=== PATIENT | female | born 1990 | race African-American/Black ===

== ENCOUNTER 2016-09-03 16:00 | Emergency (ER) | payer SELFPAY ==
[2016-09-03 16:22] VITALS: BP 144/91
--- NOTE | 2016-09-03 16:39 | EDM.PDOC ---
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 She is taking [id number] vitamin. Review of Systems: As per history of present illness and below otherwise all systems reviewed and negative. Past medical history: As per history of present illness and as reviewed below otherwise noncontributory. Surgical history: As per history of present illness and as reviewed below otherwise noncontributory. Social history: No reported history of drug or alcohol abuse. Family history: As per history of present illness and as reviewed below otherwise noncontributory. Physical exam: Alert and oriented female very polite. Answering questions appropriately HEENT: Atraumatic, normocehpalic, pupils reactive, negative for conjunctival pallor or scleral icterus, mucous membranes moist, throat clear, neck supple, nontender, trachea midline. Lungs: Clear to auscultation, breath sounds equal bilaterally, chest non tender. Heart: S1S2, regular, negative for clicks, rubs, or JVD. Abdomen: Soft, nondistended, nontender. Negative for masses or hepatossplenmegaly. Negative for costovertebral tenderness. Pelvis: Stable nontender. Genitourinary: Deferred. Rectal: Deferred Extremities: Atraumatic, negative for cords or calf pain. Neurovascular unremarkable. Neuro: Awake, alert, oriented. Cranial nerves II through XII unremarkable. Cerebellum unremarkable. Motor and sensory unremarkable throughout. Exam nonfocal. Discussed case with Dr. Ortiz who has accepted the patient to see him in the clinic tomorrow at 1245 Diagnostics: [Transvaginal ultrasound UA HCG quant] Therapeutics: [] Impression: [Abdominal pain Renal Calculus right mid ureter] Plan: [] See Dr. Ortiz tomorrow at 1245 Definitive disposition and diagnosis as appropriate pending reevaluation and review of above. Onset: Sudden Duration: Day(s): (4 days of cramping) Location: Reports: Abdomen Quality: Reports: Ache, Same as Previous Episode Severity: Moderate Improves with: Reports: None Worsens with: Reports: None Pelvic Pain Score (Numeric/FACES): 3 - Related Data Allergies Allergy/AdvReac Type Severity Reaction Status Date / Time ibuprofen Allergy Abdominal Verified 09/03/16 16:22 Pain Home Meds: Home Meds . [No Known Home Meds] 09/03/16 [History] Past Medical History HEENT History: Reports: None Cardiovascular History: Reports: None Respiratory History: Reports: None Gastrointestinal History: Reports: None Genitourinary History: Reports: None INCOME TAX AUDITOR History: Reports: None Musculoskeletal History: Reports: None Neurological History: Reports: None Psychiatric History: Reports: None Endocrine/Metabolic History: Reports: None Hematologic History: Reports: None Immunologic History: Reports: None Oncologic (Cancer) History: Reports: None Dermatologic History: Reports: None - Infectious Disease History Infectious Disease History: Reports: None - Past Surgical History Head Surgeries/Procedures: Reports: None HEENT Surgical History: Reports: None Cardiovascular Surgical History: Reports: None Respiratory Surgical History: Reports: None GI Surgical History: Reports: None Female Surgical History: Reports: None Musculoskeletal Surgical History: Reports: None Dermatological Surgical History: Reports: None Social & Family History - Family History Family Medical History: Noncontributory - Tobacco Use Smoking Status *Q: Never Smoker Second Hand Smoke Exposure: No - Caffeine Use Caffeine Use: Reports: None - Recreational Drug Use Recreational Drug Use: No ED ROS GENERAL - Review of Systems Review Of Systems: ROS reveals no pertinent complaints other than HPI. ED EXAM - Physical Exam Exam: See Below (see dictation) Course - Vital Signs Last Recorded V/S: Last Vital Signs Temp 36.6 C 09/03/16 16:18 Pulse 78 09/03/16 16:18 Resp 16 09/03/16 16:18 BP 144/91 H 09/03/16 16:18 Pulse Ox 98 09/03/16 16:18 - Orders/Labs/Meds Orders: Active Orders 24 hr Category Date Time Status Abdomen Pelvis wo Cont [CT] Stat Exams 09/03/16 18:02 Taken OB Transvaginal [US] Stat Exams 09/03/16 16:33 Taken Sodium Chloride 0.9% [Saline Flush] Med 09/03/16 18:02 Active 10 ml FLUSH ASDIRECTED PRN Sodium Chloride 0.9% [Saline Flush] Med 09/03/16 18:02 Active 2.5 ml FLUSH ASDIRECTED PRN Saline Lock Insert [OM.PC] Stat Oth 09/03/16 18:02 Ordered Medication Orders Sodium Chloride (Saline Flush) 10 ml FLUSH ASDIRECTED PRN PRN Reason: Keep Vein Open Sodium Chloride (Saline Flush) 2.5 ml FLUSH ASDIRECTED PRN PRN Reason: Keep Vein Open Labs: Laboratory Tests 09/03/16 09/03/16 09/03/16 Range/Units 16:26 16:45 16:45 WBC 17.51 H (4.0-11.0) K/uL RBC 5.19 (4.30-5.90) M/uL Hgb 13.3 (12.0-16.0) g/dL Hct 38.9 (36.0-46.0) % MCV 75.0 L (80.0-98.0) fL MCH 25.6 L (27.0-32.0) pg MCHC 34.2 (31.0-37.0) g/dL RDW Std Deviation 46.2 (28.0-62.0) fl RDW Coeff of Rudy 17 H (11.0-15.0) % Plt Count 255 (150-400) K/uL MPV 10.30 (7.40-12.00) fL Neut % (Auto) 64.1 (48.0-80.0) % Lymph % (Auto) 27.5 (16.0-40.0) % Montrose % (Auto) 7.3 (0.0-15.0) % Eos % (Auto) 0.9 (0.0-7.0) % Baso % (Auto) 0.2 (0.0-1.5) % Neut # (Auto) 11.2 H (1.4-5.7) K/uL Lymph # (Auto) 4.8 H (0.6-2.4) K/uL Montrose # (Auto) 1.3 H (0.0-0.8) K/uL Eos # (Auto) 0.2 (0.0-0.7) K/uL Baso # (Auto) 0.0 (0.0-0.1) K/uL Nucleated RBC % 0.0 /100WBC Nucleated RBCs # 0 K/uL Sodium (136-146) mmol/L Potassium (3.5-5.1) mmol/L Chloride (98-110) mmol/L Carbon Dioxide (21-31) mmol/L BUN (6.0-23.0) mg/dL Creatinine (0.6-1.5) mg/dL Est Cr Clr Drug Dosing mL/min Estimated GFR (MDRD) ml/min Glucose (60-110) mg/dL Calcium (8.8-10.8) mg/dL Total Bilirubin (0.1-1.5) mg/dL AST (5-40) IU/L ALT (8-54) IU/L Alkaline Phosphatase (40-150) Total Protein (6.0-8.0) g/dL Albumin (3.5-5.0) g/dL Globulin (2.0-3.5) g/dL Albumin/Globulin Ratio (1.3-2.8) HCG, Quant < 1.2 mIU/mL Urine Color YELLOW Urine Appearance CLEAR Urine pH 6.0 (5.0-8.0) Ur Specific Fenton 1.015 (1.001-1.035) Urine Protein NEGATIVE (NEGATIVE) mg/dL Urine Glucose (UA) NEGATIVE (NEGATIVE) mg/dL Urine Ketones NEGATIVE (NEGATIVE) mg/dL Urine Occult Blood MODERATE (NEGATIVE) Urine Nitrite NEGATIVE (NEGATIVE) Urine Bilirubin NEGATIVE (NEGATIVE) Urine Urobilinogen 0.2 (<2.0) EU/dL Ur Leukocyte Esterase SMALL (NEGATIVE) Urine RBC 2-4 (0-2/HPF) Urine WBC 2-6 (0-5/HPF) Ur Epithelial Cells FEW (NONE-FEW) Urine Bacteria FEW (NEGATIVE) 09/03/16 Range/Units 16:45 WBC (4.0-11.0) K/uL RBC (4.30-5.90) M/uL Hgb (12.0-16.0) g/dL Hct (36.0-46.0) % MCV (80.0-98.0) fL MCH (27.0-32.0) pg MCHC (31.0-37.0) g/dL RDW Std Deviation (28.0-62.0) fl RDW Coeff of Rudy (11.0-15.0) % Plt Count (150-400) K/uL MPV (7.40-12.00) fL Neut % (Auto) (48.0-80.0) % Lymph % (Auto) (16.0-40.0) % Montrose % (Auto) (0.0-15.0) % Eos % (Auto) (0.0-7.0) % Baso % (Auto) (0.0-1.5) % Neut # (Auto) (1.4-5.7) K/uL Lymph # (Auto) (0.6-2.4) K/uL Montrose # (Auto) (0.0-0.8) K/uL Eos # (Auto) (0.0-0.7) K/uL Baso # (Auto) (0.0-0.1) K/uL Nucleated RBC % /100WBC Nucleated RBCs # K/uL Sodium 139 (136-146) mmol/L Potassium 3.4 L (3.5-5.1) mmol/L Chloride 109 (98-110) mmol/L Carbon Dioxide 21 (21-31) mmol/L BUN 10 (6.0-23.0) mg/dL Creatinine 1.0 (0.6-1.5) mg/dL Est Cr Clr Drug Dosing 86.75 mL/min Estimated GFR (MDRD) > 60.0 ml/min Glucose 100 (60-110) mg/dL Calcium 9.3 (8.8-10.8) mg/dL Total Bilirubin 0.5 (0.1-1.5) mg/dL AST 12 (5-40) IU/L ALT 11 (8-54) IU/L Alkaline Phosphatase 58 (40-150) Total Protein 7.7 (6.0-8.0) g/dL Albumin 4.5 (3.5-5.0) g/dL Globulin 3.2 (2.0-3.5) g/dL Albumin/Globulin Ratio 1.4 (1.3-2.8) HCG, Quant mIU/mL Urine Color Urine Appearance Urine pH (5.0-8.0) Ur Specific Fenton (1.001-1.035) Urine Protein (NEGATIVE) mg/dL Urine Glucose (UA) (NEGATIVE) mg/dL Urine Ketones (NEGATIVE) mg/dL Urine Occult Blood (NEGATIVE) Urine Nitrite (NEGATIVE) Urine Bilirubin (NEGATIVE) Urine Urobilinogen (<2.0) EU/dL Ur Leukocyte Esterase (NEGATIVE) Urine RBC (0-2/HPF) Urine WBC (0-5/HPF) Ur Epithelial Cells (NONE-FEW) Urine Bacteria (NEGATIVE) Meds: Medications Generic Name Dose Route Start Last Admin Trade Name Freq PRN Reason Stop Dose Admin Sodium Chloride 10 ml 09/03/16 18:02 Saline Flush FLUSH ASDIRECTED PRN Keep Vein Open Sodium Chloride 2.5 ml 09/03/16 18:02 Saline Flush FLUSH ASDIRECTED PRN Keep Vein Open Departure - Departure Time of Disposition: 19:01 Disposition: Home, Self-Care 01 Condition: good Clinical Impression: Renal calculus, right - Discharge Information Forms: ED Department Discharge Additional Instructions: The following information is given to patients seen in the emergency department who are being discharged to home. This information is to outline your options for follow-up care. We provide all patients seen in our emergency department with a follow-up referral. The need for follow-up, as well as the timing and circumstances, are variable depending upon the specifics of your emergency department visit. If you don't have a primary care physician on staff, we will provide you with a referral. We always advise you to contact your personal physician following an emergency department visit to inform them of the circumstance of the visit and for follow-up with them and/or the need for any referrals to a consulting specialist. The emergency department will also refer you to a specialist when appropriate. This referral assures that you have the opportunity for followup care with a specialist. All of these measure are taken in an effort to provide you with optimal care, which includes your followup. Under all circumstances we always encourage you to contact your private physician who remains a resource for coordinating your care. When calling for followup care, please make the office aware that this follow-up is from your recent emergency room visit. If for any reason you are refused follow-up, please contact the [facility] emergency department at and asked to speak to the emergency department charge nurse. Please see Dr. Ortiz at [phone] [facility] Specialty Care - Urology [address] [place] [id number] - My Orders Last 24 Hours: My Active Orders 09/03/16 16:33 OB Transvaginal [US] Stat 09/03/16 18:02 Abdomen Pelvis wo Cont [CT] Stat Sodium Chloride 0.9% [Saline Flush] 10 ml FLUSH ASDIRECTED PRN Sodium Chloride 0.9% [Saline Flush] 2.5 ml FLUSH ASDIRECTED PRN Saline Lock Insert [OM.PC] Stat - Assessment/Plan Last 24 Hours: My Active Orders 09/03/16 16:33 OB Transvaginal [US] Stat 09/03/16 18:02 Abdomen Pelvis wo Cont [CT] Stat Sodium Chloride 0.9% [Saline Flush] 10 ml FLUSH ASDIRECTED PRN Sodium Chloride 0.9% [Saline Flush] 2.5 ml FLUSH ASDIRECTED PRN Saline Lock Insert [OM.PC] Stat
[2016-09-03] MEDS ORDERED: Sodium Chloride 0.9% 10 ML Syringe FLUSH PRN (18:02)
[2016-09-03] MEDS ORDERED: Sodium Chloride 0.9% 2.5 ML Syringe FLUSH PRN (18:02)
[2016-09-03 18:17] LABS: CHLORIDE,CL 109 mmol/L (98-110); SODIUM,NA 139 mmol/L (136-146)
--- NOTE | 2016-09-04 10:44 | US ---
EXAM DATE: 09/03/16 PATIENT'S AGE: 26 Patient: KAREN JOHNSON Facility: [place], [place] Site . Site : 1990 Study: US OB Pelvis [id number]/7/2017 5:54:31 PM Ordering Physician: Doctor Saeed Final Report: HISTORY: Spotting, positive home test. FINDINGS: Multiple box scale static images from transabdominal pelvic and renal ultrasound with transvaginal pelvic images were evaluated. The uterus measures 7.2 x 4.1 x 3.3 cm. The endometrial stripe is 8 mm in thickness. No intrauterine gestational sac is seen. Nabothian cysts are present. A mild to moderate amount of free fluid is seen in the cul de sac. The right ovary measures right ovary measures 3.1 x 2.2 x 2.6 cm. There is normal blood flow to the right ovary. No adnexal mass. The left ovary measures 3.1 x 2.0 x 2.4 cm and contains follicles has normal blood flow. No adnexal mass is appreciated. The maternal right kidney measures 11.6 cm and has moderate hydronephrosis. The left kidney measures 12.1 cm and is free of hydronephrosis or mass. IMPRESSION: 1. No intra uterine gestational sac is identified. No adnexal mass for ectopic is seen. Recommend correlation with quantitative beta HCG. 2. Mild to moderate amount of free fluid within the cul-de-sac. 3. Moderate maternal right-sided hydronephrosis. Dictated by Christine Heredia MD @ 09/03/2016 6:20:53 PM Dictated by: Christine Heredia MD @ 09/03/2016 18:21:09 (Electronic Signature) Report Signed by Proxy. FRANCOIS
--- NOTE | 2016-09-04 10:48 | CT ---
EXAM DATE: 09/03/16 PATIENT'S AGE: 26 Patient: KAREN JOHNSON Facility: [place], [place] Site . Site : 1990 Study: CT Abdomen/Pelvis [id number] 6:37:49 PM Ordering Physician: Doctor Saeed Final Report: INDICATION: abd pain TECHNIQUE: CT abdomen and pelvis without contrast. COMPARISON: None FINDINGS: Lower chest: Unremarkable. Liver: Unremarkable. Spleen: Unremarkable. Pancreas: Unremarkable. Gallbladder and bile ducts: Unremarkable. Kidneys: 7 x 8 mm calculus within the mid right ureter with associated right- sided hydroureter/ hydronephrosis. Additional bilateral nonobstructing intrarenal calculi. . Adrenal glands: Unremarkable. GI tract: Unremarkable. Appendix is normal. Vascular structures: Unremarkable. Lymph nodes: Unremarkable. Miscellaneous: Unremarkable. No free air. Trace amount of free fluid in the pelvic cul-de-sac. . Pelvic Organs: Unremarkable. Bones: Unremarkable for age. IMPRESSION: 7 x 8 mm calculus within the mid right ureter with associated right-sided hydroureter/ hydronephrosis. Additional bilateral nonobstructing intrarenal calculi.. Dictated by Palmer Tarango MD @ 09/03/2016 6:52:26 PM Dictated by: Palmer Tarango MD @ 09/03/2016 18:52:44 (Electronic Signature) Report Signed by Proxy. [facility]
== END 2016-09-03 19:15 | disposition home or self-care (01) ==
LOC: MW.ED 16:00
DX: O26.831 Pregnancy related renal disease, first trimester (principal); N13.2 Hydronephrosis with renal and ureteral calculous obstruction; Z88.6 Allergy status to analgesic agent; Z3A.11 11 weeks gestation of pregnancy
CPT/HCPCS: 36415; 74176; 74176-26; 76817; 76817-26; 80053; 81001; 84702; 85025; 99284; 99284-25

== ENCOUNTER 2017-03-31 00:05 | Emergency (ER) | payer MEDICAID ==
--- NOTE | 2017-03-31 00:18 | EDM.PDOC ---
ED HPI GENERAL MEDICAL PROBLEM - General Chief Complaint: Behavioral/Psych Stated Complaint: AMBULANCE Time Seen by Provider: 03/31/17 00:13 - History of Present Illness INITIAL COMMENTS - FREE TEXT/NARRATIVE: HISTORY AND PHYSICAL: History of present illness: Patient 27-year-old female history of depression who is currently medicated with trazodone who presents after a friend called police for patient expressing suicidal ideation paramedics were notified palpation awake alert oriented 3 expressing depression with suicidal ideation patient denies ingestion or any self-harm at this time she has no specific plan. Review of systems: As per history of present illness and below otherwise all systems reviewed and negative. Past medical history: As per history of present illness and as reviewed below otherwise noncontributory. Surgical history: As per history of present illness and as reviewed below otherwise noncontributory. Social history: No reported history of drug or alcohol abuse. Family history: As per history of present illness and as reviewed below otherwise noncontributory. Physical exam: HEENT: Atraumatic, normocephalic, pupils reactive, negative for conjunctival pallor or scleral icterus, mucous membranes moist, throat clear, neck supple, nontender, trachea midline. Lungs: Clear to auscultation, breath sounds equal bilaterally, chest nontender. Heart: S1S2, regular, negative for clicks, rubs, or JVD. Abdomen: Soft, nondistended, nontender. Negative for masses or hepatosplenomegaly. Negative for costovertebral tenderness. Pelvis: Stable nontender. Genitourinary: Deferred. Rectal: Deferred. Extremities: Atraumatic, negative for cords or calf pain. Neurovascular unremarkable. Neuro: Awake, alert, oriented. Cranial nerves II through XII unremarkable. Cerebellum unremarkable. Motor and sensory unremarkable throughout. Exam nonfocal. Diagnostics: CBC CMP EKG prolactin UA hCG urine drug screen EtOH aspirin and Tylenol level Therapeutics: IV O2 monitor Impression: #1 depressive episode with suicidal ideation Definitive disposition and diagnosis as appropriate pending reevaluation and review of above. - Related Data Allergies Allergy/AdvReac Type Severity Reaction Status Date / Time ibuprofen Allergy Abdominal Verified 03/31/17 00:08 Pain Home Meds: Home Meds . 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: None Musculoskeletal History: Reports: None Neurological History: Reports: None Psychiatric History: Reports: None Endocrine/Metabolic History: Reports: None Hematologic History: Reports: None Immunologic History: Reports: None Oncologic (Cancer) History: Reports: None Dermatologic History: Reports: None - Infectious Disease History Infectious Disease History: Reports: None - Past Surgical History Head Surgeries/Procedures: Reports: None HEENT Surgical History: Reports: None Cardiovascular Surgical History: Reports: None Respiratory Surgical History: Reports: None GI Surgical History: Reports: None Female Surgical History: Reports: None Musculoskeletal Surgical History: Reports: None Dermatological Surgical History: Reports: None Social & Family History - Family History Family Medical History: Noncontributory - Tobacco Use Smoking Status *Q: Never Smoker Second Hand Smoke Exposure: No - Caffeine Use Caffeine Use: Reports: None - Recreational Drug Use Recreational Drug Use: No ED ROS GENERAL - Review of Systems Review Of Systems: ROS reveals no pertinent complaints other than HPI. ED EXAM, GENERAL - Physical Exam Exam: See Below (See dictation) Departure - Departure Time of Disposition: 00:17 Disposition: DC/Tfer to Psych Hosp/Unit 65 Condition: Good Clinical Impression: Depressive disorder - Discharge Information
[2017-03-31 00:54] LABS: ACETAMINOPHEN < 3.0 ug/mL; CHLORIDE,CL 112 mmol/L (98-110); SODIUM,NA 141 mmol/L (136-146)
[2017-03-31] MEDS ORDERED: cefTRIAXone 1,000 MG in Lidocaine 1% 4 ML IM ONE (01:27)
[2017-03-31] MEDS ORDERED: Ziprasidone Mesylate 20 MG in Water For Injection, Sterile 1.2 ML IM ONE ×2 (02:53→02:58)
[2017-03-31] MEDS ORDERED: Ziprasidone Mesylate 20 MG Vial IM ONE (03:00)
[2017-03-31] MEDS ORDERED: Ziprasidone Mesylate 20 MG Vial ONE (03:01)
[2017-03-31] MEDS ORDERED: Water For Injection, Sterile 20 ML ONE (03:02)
[2017-03-31 03:48] VITALS: BP 140/100
--- NOTE | 2017-03-31 20:59 | CR ---
EXAM DATE: 03/31/17 PATIENT'S AGE: 27 Patient: KAREN JOHNSON Facility: [place], [place] Site . Site : 1990 Study: XRay Chest [id number] 1:51:00 AM Ordering Physician: Satnam Prabhakar Final Report: INDICATION: Pain, Shortness of Breath TECHNIQUE: Chest 1 view COMPARISON: None FINDINGS: Cardiovascular and mediastinum: Heart size and vasculature are normal in caliber and appearance. Mediastinum is within normal limits. Lungs and pleural space: No focal consolidation. No sign of pleural effusion. No pneumothorax. Bones and soft tissues: No significant findings. IMPRESSION: No acute cardiopulmonary disease. Dictated by Palmer Tarango MD @ 03/31/2017 1:52:06 AM Dictated by: Palmer Tarango MD @ 03/31/2017 01:52:17 (Electronic Signature) Report Signed by Proxy. [facility]
== END 2017-03-31 03:26 ==
LOC: MW.ED 00:05
DX: F32.9 Major depressive disorder, single episode, unspecified (principal); R45.851 Suicidal ideations; Z88.6 Allergy status to analgesic agent
CPT/HCPCS: 36415; 71045; 80053; 80305; 81001; 83605; 84146; 84703; 85025; 93005; 96372; 99285; G0480; J0696; J3486; 99284

== ENCOUNTER 2017-11-16 16:48 | Emergency (ER) | payer MEDICAID ==
--- NOTE | 2017-11-16 17:16 | EDM.PDOC ---
ED HPI GENERAL MEDICAL PROBLEM - General Chief Complaint: Abdominal Pain Stated Complaint: PELVIC PAIN Time Seen by Provider: 11/16/17 17:07 Source of Information: Reports: Patient History Limitations: Reports: No Limitations - History of Present Illness INITIAL COMMENTS - FREE TEXT/NARRATIVE: HISTORY AND PHYSICAL: History of present illness: Patient is a 27-year-old female who presents to the emergency room today with complaints of low abdominal cramping in . Denies any vaginal bleeding or discharge. Denies any fever, chills, chest pain, shortness of breath or cough. Denies any nausea, vomiting, diarrhea, constipation or dysuria. She states she is approximately 6 weeks with LMP October 04, 2017. Primary OBGYN is Dr Lee at [facility] Review of systems: As per history of present illness and below otherwise all systems reviewed and negative. Past medical history: As per history of present illness and as reviewed below otherwise noncontributory. Surgical history: As per history of present illness and as reviewed below otherwise noncontributory. Social history: No reported history of drug or alcohol abuse. Family history: As per history of present illness and as reviewed below otherwise noncontributory. Physical exam: General: Developed and well-nourished 27-year-old -[place] female. Alert and oriented. Nontoxic appearing and in no acute distress. HEENT: Atraumatic, normocephalic, pupils equal and reactive bilaterally, negative for conjunctival pallor or scleral icterus, mucous membranes moist, throat clear, neck supple, nontender, trachea midline. No drooling or trismus noted. No meningeal signs Lungs: Clear to auscultation, breath sounds equal bilaterally, chest nontender. Heart: S1S2, regular rate and rhythm without overt murmur Abdomen: Soft, nondistended, nontender. Negative for masses or hepatosplenomegaly. Negative for costovertebral tenderness. Pelvis: Stable nontender. Genitourinary: Deferred. Rectal: Deferred. Skin: Intact, warm, dry. No lesions or rashes noted. Extremities: Atraumatic, negative for cords or calf pain. Neurovascular unremarkable. Neuro: Awake, alert, oriented. Cranial nerves II through XII unremarkable. Cerebellum unremarkable. Motor and sensory unremarkable throughout. Exam nonfocal. Notes: Lab work is unremarkable. Quant 8,370. Patient does have an early UTI, culture added. CT shows an intrauterine uterine gestational sac at 5 weeks 6 days, containing a yolk sac, however pole was not identified. There is a subchorionic hemorrhage noted. This information was shared with the patient. She reports that she does not like taking oral medications and would rather wait on an antibiotic until she sees her SENIOR INFORMATION SECURITY ENGINEER. I strongly encouraged her to follow up with her SENIOR INFORMATION SECURITY ENGINEER tomorrow for further evaluation and management. She voices understanding and is agreeable to plan of care. Denies any further questions or concerns at this time. Diagnostics: CBC, CMP, UA, Quant HCG, OB ultrasound Therapeutics: Tylenol Prescription: None Impression: Pelvic Pain in Plan: 1. Pelvic rest until cleared by your OBGYN (no sex, tampons, etc...) 2. Tylenol as needed for pain. May apply gentle heat to low abdomen. 3. Follow up with your OBGYN in the next 1-2 days. Return to the ED as needed as discussed. Definitive disposition and diagnosis as appropriate pending reevaluation and review of above. Onset: Today Location: Reports: Abdomen pelvic Pain Score (Numeric/FACES): 6 - Related Data Allergies Allergy/AdvReac Type Severity Reaction Status Date / Time ibuprofen Allergy Abdominal Verified 11/16/17 17:01 Pain Home Meds: Home Meds . [No Known Home Meds] 11/16/17 [History] Past Medical History HEENT History: Reports: None Cardiovascular History: Reports: None Respiratory History: Reports: None Gastrointestinal History: Reports: None Genitourinary History: Reports: None SENIOR INFORMATION SECURITY ENGINEER History: Reports: None Musculoskeletal History: Reports: None Neurological History: Reports: None Psychiatric History: Reports: None Endocrine/Metabolic History: Reports: None Hematologic History: Reports: None Immunologic History: Reports: None Oncologic (Cancer) History: Reports: None Dermatologic History: Reports: None - Infectious Disease History Infectious Disease History: Reports: None - Past Surgical History Head Surgeries/Procedures: Reports: None HEENT Surgical History: Reports: None Cardiovascular Surgical History: Reports: None Respiratory Surgical History: Reports: None GI Surgical History: Reports: None Female Surgical History: Reports: None Musculoskeletal Surgical History: Reports: None Dermatological Surgical History: Reports: None Social & Family History - Family History Family Medical History: Noncontributory Oncologic: Reports: Brain, Other (See Below) Other Oncologic Family History: stomach - Tobacco Use Smoking Status *Q: Current Every Day Smoker Years of Tobacco use: 5 Packs/Tins Daily: 0.2 - Caffeine Use Caffeine Use: Reports: None - Recreational Drug Use Recreational Drug Use: Yes Drug Use in Last 12 Months: Yes Recreational Drug Type: Reports: Marijuana/Hashish Recreational Drug Use Frequency: Socially ED ROS GENERAL - Review of Systems Review Of Systems: ROS reveals no pertinent complaints other than HPI. ED EXAM - Physical Exam Exam: See Below (See dictation) Course - Vital Signs Last Recorded V/S: Last Vital Signs Temp 98.2 F 11/16/17 16:59 Pulse 87 11/16/17 16:59 Resp 16 11/16/17 16:59 BP 122/59 L 11/16/17 16:59 Pulse Ox 100 11/16/17 16:59 - Orders/Labs/Meds Orders: Active Orders 24 hr Category Date Time Status OB 1st Tri Sgl 1st Gest [US] Stat Exams 11/16/17 17:08 Taken CULTURE URINE [RM] Stat Lab 11/16/17 18:56 Ordered UA W/MICROSCOPIC [URIN] Stat Lab 11/16/17 17:06 Ordered Labs: Laboratory Tests 11/16/17 11/16/17 11/16/17 Range/Units 17:06 17:48 17:48 WBC 15.96 H (4.0-11.0) K/uL RBC 4.73 (4.30-5.90) M/uL Hgb 12.3 (12.0-16.0) g/dL Hct 35.3 L (36.0-46.0) % MCV 74.6 L (80.0-98.0) fL MCH 26.0 L (27.0-32.0) pg MCHC 34.8 (31.0-37.0) g/dL RDW Std Deviation 46.8 (28.0-62.0) fl RDW Coeff of Rudy 17 H (11.0-15.0) % Plt Count 291 (150-400) K/uL MPV 9.20 (7.40-12.00) fL Neut % (Auto) 69.1 (48.0-80.0) % Lymph % (Auto) 17.1 (16.0-40.0) % [place] % (Auto) 11.7 (0.0-15.0) % Eos % (Auto) 1.8 (0.0-7.0) % Baso % (Auto) 0.3 (0.0-1.5) % Neut # (Auto) 11.0 H (1.4-5.7) K/uL Lymph # (Auto) 2.7 H (0.6-2.4) K/uL [place] # (Auto) 1.9 H (0.0-0.8) K/uL Eos # (Auto) 0.3 (0.0-0.7) K/uL Baso # (Auto) 0.1 (0.0-0.1) K/uL Nucleated RBC % 0.0 /100WBC Nucleated RBCs # 0 K/uL Sodium 137 (136-145) mmol/L Potassium 3.6 (3.5-5.1) mmol/L Chloride 105 (98-107) mmol/L Carbon Dioxide 23.6 (21.0-32.0) mmol/L BUN 13 (7.0-18.0) mg/dL Creatinine 0.8 (0.6-1.0) mg/dL Est Cr Clr Drug Dosing 103.63 mL/min Estimated GFR (MDRD) > 60.0 ml/min Glucose 90 (74-106) mg/dL Calcium 9.0 (8.5-10.1) mg/dL Total Bilirubin 0.2 (0.2-1.0) mg/dL AST 7 L (15-37) IU/L ALT 16 (14-63) IU/L Alkaline Phosphatase 54 (46-116) U/L Total Protein 7.1 (6.4-8.2) g/dL Albumin 3.7 (3.4-5.0) g/dL Globulin 3.4 (2.0-3.5) g/dL Albumin/Globulin Ratio 1.1 L (1.3-2.8) HCG, Quant 8370.0 mIU/mL Urine Color YELLOW Urine Appearance CLEAR Urine pH 6.5 (5.0-8.0) Ur Specific [place] 1.025 (1.001-1.035) Urine Protein NEGATIVE (NEGATIVE) mg/dL Urine Glucose (UA) NEGATIVE (NEGATIVE) mg/dL Urine Ketones NEGATIVE (NEGATIVE) mg/dL Urine Occult Blood SMALL H (NEGATIVE) Urine Nitrite NEGATIVE (NEGATIVE) Urine Bilirubin NEGATIVE (NEGATIVE) Urine Urobilinogen 0.2 (<2.0) EU/dL Ur Leukocyte Esterase NEGATIVE (NEGATIVE) Urine RBC 3-6 (0-2/HPF) Urine WBC 1-3 (0-5/HPF) Ur Epithelial Cells FEW (NONE-FEW) Urine Bacteria FEW (NEGATIVE) Departure - Departure Time of Disposition: 19:01 Disposition: Home, Self-Care 01 Clinical Impression: Pelvic pain affecting Qualifiers: Trimester: first trimester Qualified Code(s): O26.891 - Other specified related conditions, first trimester - Discharge Information Referrals: PCP,None [Primary Care Provider] - Forms: ED Department Discharge Additional Instructions: The following information is given to patients seen in the emergency department who are being discharged to home. This information is to outline your options for follow-up care. We provide all patients seen in our emergency department with a follow-up referral. The need for follow-up, as well as the timing and circumstances, are variable depending upon the specifics of your emergency department visit. If you don't have a primary care physician on staff, we will provide you with a referral. We always advise you to contact your personal physician following an emergency department visit to inform them of the circumstance of the visit and for follow-up with them and/or the need for any referrals to a consulting specialist. The emergency department will also refer you to a specialist when appropriate. This referral assures that you have the opportunity for follow-up care with a specialist. All of these measure are taken in an effort to provide you with optimal care, which includes your follow-up. Under all circumstances we always encourage you to contact your private physician who remains a resource for coordinating your care. When calling for follow-up care, please make the office aware that this follow-up is from your recent emergency room visit. If for any reason you are refused follow-up, please contact the [facility] Emergency Department at and asked to speak to the emergency department charge nurse. [facility] [address] [place] [id number] [facility] [address] [place] [id number] 1. Pelvic rest until cleared by your OBGYN (no sex, tampons, etc...) 2. Tylenol as needed for pain. May apply gentle heat to low abdomen. 3. Follow up with your OBGYN in the next 1-2 days. Return to the ED as needed as discussed. - My Orders Last 24 Hours: My Active Orders 11/16/17 17:06 UA W/MICROSCOPIC [URIN] Stat 11/16/17 17:08 OB 1st Tri Sgl 1st Gest [US] Stat 11/16/17 18:56 CULTURE URINE [RM] Stat - Assessment/Plan Last 24 Hours: My Active Orders 11/16/17 17:06 UA W/MICROSCOPIC [URIN] Stat 11/16/17 17:08 OB 1st Tri Sgl 1st Gest [US] Stat 11/16/17 18:56 CULTURE URINE [RM] Stat
[2017-11-16 18:40] LABS: CHLORIDE,CL 105 mmol/L (98-107); SODIUM,NA 137 mmol/L (136-145)
[2017-11-16 19:59] VITALS: BP 120/63
--- NOTE | 2017-11-17 09:59 | US ---
EXAM DATE: 11/16/17 PATIENT'S AGE: 27 Patient: KAREN JOHNSON Facility: [place], [place] Site . Site : 1990 Study: US OB Pelvis [id number]/20/2018 5:56:07 PM Ordering Physician: Doctor Saeed Final Report: INDICATION: . Cramping TECHNIQUE: Ultrasound OB pelvis transvaginal. Real-time box-scale imaging of the pelvis was performed. COMPARISON: None available FINDINGS: There is an intrauterine gestational sac with a mean sac diameter corresponding to 5 weeks and 6 days. A yolk sac is visualized, measuring 4 millimeters. A pole is not identified. There is a 0.8 x 0.4 x 0.5 cm hypoechoic area within the endometrium adjacent to the gestational sac suggestive of a subchorionic hemorrhage. Cervical nabothian cysts are seen, including a 0.7 x 0.4 x 0.6 centimeter complex nabothian cyst, containing internal echogenicities. The right ovary measures 4.1 x 3.8 x 2.9 centimeters containing a 1.7 x 2.1 x 1.9 centimeter cystic structure with mildly increased peripheral flow, likely a corpus luteum cyst. The left ovary measures 2.8 x 2.0 x 1.9 cm. Bilateral ovarian Doppler flow is documented. No significant free fluid is seen. IMPRESSION: An intrauterine gestational sac at 5 weeks and 6 days by mean sac diameter, containing a yolk sac, however a pole is not identified at this time. A subchorionic hemorrhage noted. A short term followup study is recommended to document viability. Dictated by Wayne Aguilar MD @ 11/16/2017 6:38:00 PM Dictated by: Wayne Aguilar MD @ 11/16/2017 18:38:05 (Electronic Signature) Report Signed by Proxy. FRANCOIS
== END 2017-11-16 19:21 | disposition home or self-care (01) ==
LOC: MW.ED 16:48
DX: O99.89 Other specified diseases and conditions complicating pregnancy, childbirth and the puerperium (principal); R10.2 Pelvic and perineal pain; Z88.8 Allergy status to other drugs, medicaments and biological substances; F17.210 Nicotine dependence, cigarettes, uncomplicated; Z3A.01 Less than 8 weeks gestation of pregnancy
CPT/HCPCS: 36415; 76801; 76801-26; 80053; 81001; 84702; 85025; 87086; 99284-25

== ENCOUNTER 2017-12-22 19:13 | Emergency (ER) | payer MEDICAID ==
[2017-12-22] MEDS ORDERED: Sodium Chloride 0.9% 1,000 ML IV ONE (19:37)
[2017-12-22] MEDS ORDERED: Sodium Chloride 0.9% 2.5 ML Syringe FLUSH PRN (19:37)
[2017-12-22] MEDS ORDERED: Ondansetron 4 MG/2 ML SDV IVPUSH ONE (19:37)
[2017-12-22] MEDS ORDERED: Sodium Chloride 0.9% 10 ML Syringe FLUSH PRN (19:37)
[2017-12-22 19:53] VITALS: BP 132/76
--- NOTE | 2017-12-22 19:56 | EDM.PDOC ---
ED HPI GENERAL MEDICAL PROBLEM - General Chief Complaint: Gastrointestinal Problem Stated Complaint: VOMITING Time Seen by Provider: 12/22/17 19:53 Source of Information: Reports: Patient History Limitations: Reports: No Limitations - History of Present Illness INITIAL COMMENTS - FREE TEXT/NARRATIVE: HISTORY AND PHYSICAL: History of present illness: She is a 27-year-old female is approximately 10 weeks here with complaint of vomiting. Reports she's had about 7 episodes of vomiting today and has not been able to keep anything down. Prior to that she is vomiting about 1- 2 times per day. She states she has a little bit of cramping in her abdomen. The vomiting but denies any pelvic pain or cramping or vaginal bleeding. She reports low back pain. She denies any fevers, chills, diarrhea, chest pain, shortness of breath, cough, dysuria, or hematuria. Patient sees Dr. Espinoza at [facility]. She states at her last OB visit approximately 2 weeks ago they were concerned that she had an elevated white count. Review of systems: As per history of present illness and below otherwise all systems reviewed and negative. Past medical history: As per history of present illness and as reviewed below otherwise noncontributory. Surgical history: As per history of present illness and as reviewed below otherwise noncontributory. Social history: No reported history of drug or alcohol abuse. Family history: As per history of present illness and as reviewed below otherwise noncontributory. Physical exam: General: Patient sitting comfortably in no acute distress and nontoxic appearing HEENT: Mucous membraines dry, Atraumatic, normocephalic, pupils reactive, negative for conjunctival pallor or scleral icterus, throat clear, neck supple, nontender, trachea midline. No meningeal signs. Lungs: Clear to auscultation, breath sounds equal bilaterally, chest nontender. Heart: S1S2, regular, negative for clicks, rubs, or overt murmur. Abdomen: Mild upper abdominal pain. Soft, nondistended. Negative for masses or hepatosplenomegaly. Negative for costovertebral tenderness. Pelvis: Stable nontender. Genitourinary: Deferred. Rectal: Deferred. Extremities: Atraumatic, negative for cords or calf pain. Neurovascular unremarkable. Neuro: Awake, alert, oriented. Cranial nerves II through XII unremarkable. Cerebellum unremarkable. Motor and sensory unremarkable throughout. Exam nonfocal. Notes: Discussed with Dr. Reyna, she reports leukocytosis of is normal without other signs of infection. She does not recommend treating for a UTI at this time and will follow urine culture. Patient will follow up in the clinic with her OB. Diagnostics: CBC, CMP, UA, UC, blood culture x 2 Therapeutics: 1L NS IV 4mg Zofran IV Prescriptions: None Impression: Nausea and vomiting in Leukocytosis in Plan: 1. Follow up with Deputy Building Guard, please call in the morning to schedule appointment 2. Return to ED as needed as discussed Definitive disposition and diagnosis as appropriate pending reevaluation and review of above. head Pain Score (Numeric/FACES): 10 - Related Data Allergies Allergy/AdvReac Type Severity Reaction Status Date / Time ibuprofen Allergy Abdominal Verified 12/22/17 19:53 Pain Home Meds: Home Meds . [No Known Home Meds] 11/16/17 [History] Past Medical History HEENT History: Reports: None Cardiovascular History: Reports: None Respiratory History: Reports: None Gastrointestinal History: Reports: None Genitourinary History: Reports: None SITE SAFETY COORDINATOR History: Reports: None Musculoskeletal History: Reports: None Neurological History: Reports: None Psychiatric History: Reports: None Endocrine/Metabolic History: Reports: None Hematologic History: Reports: None Immunologic History: Reports: None Oncologic (Cancer) History: Reports: None Dermatologic History: Reports: None - Infectious Disease History Infectious Disease History: Reports: None - Past Surgical History Head Surgeries/Procedures: Reports: None HEENT Surgical History: Reports: None Cardiovascular Surgical History: Reports: None Respiratory Surgical History: Reports: None GI Surgical History: Reports: None Female Surgical History: Reports: None Musculoskeletal Surgical History: Reports: None Dermatological Surgical History: Reports: None Social & Family History - Family History Family Medical History: Noncontributory Oncologic: Reports: Brain, Other (See Below) Other Oncologic Family History: stomach - Caffeine Use Caffeine Use: Reports: None ED ROS GENERAL - Review of Systems Review Of Systems: ROS reveals no pertinent complaints other than HPI. ED EXAM - Physical Exam Exam: See Below (see dictation) Course - Vital Signs Last Recorded V/S: Last Vital Signs Temp 37.0 C 12/22/17 19:13 Pulse 74 12/22/17 19:13 Resp 18 12/22/17 19:13 BP 132/76 12/22/17 19:13 Pulse Ox 98 12/22/17 19:13 - Orders/Labs/Meds Orders: Active Orders 24 hr Category Date Time Status CULTURE BLOOD [BC] Stat Lab 12/22/17 21:22 Ordered CULTURE BLOOD [BC] Stat Lab 12/22/17 21:22 Ordered CULTURE URINE [RM] Stat Lab 12/22/17 19:50 Received LACTATE WITH REFLEX [BG] Stat Lab 12/22/17 21:22 Ordered Sodium Chloride 0.9% [Saline Flush] Med 12/22/17 19:37 Active 10 ml FLUSH ASDIRECTED PRN Sodium Chloride 0.9% [Saline Flush] Med 12/22/17 19:37 Active 2.5 ml FLUSH ASDIRECTED PRN Blood Culture x2 Reflex Set [OM.PC] Stat Oth 12/22/17 21:22 Ordered Saline Lock Insert [OM.PC] Stat Oth 12/22/17 19:37 Ordered Medication Orders Sodium Chloride (Saline Flush) 10 ml FLUSH ASDIRECTED PRN PRN Reason: Keep Vein Open Sodium Chloride (Saline Flush) 2.5 ml FLUSH ASDIRECTED PRN PRN Reason: Keep Vein Open Labs: Laboratory Tests 12/22/17 12/22/17 12/22/17 Range/Units 19:50 19:55 19:55 WBC 21.81 H (4.0-11.0) K/uL RBC 5.12 (4.30-5.90) M/uL Hgb 13.4 (12.0-16.0) g/dL Hct 37.9 (36.0-46.0) % MCV 74.0 L (80.0-98.0) fL MCH 26.2 L (27.0-32.0) pg MCHC 35.4 (31.0-37.0) g/dL RDW Std Deviation 45.6 (28.0-62.0) fl RDW Coeff of Rudy 17 H (11.0-15.0) % Plt Count 310 (150-400) K/uL MPV 9.60 (7.40-12.00) fL Neut % (Auto) 79.8 (48.0-80.0) % Lymph % (Auto) 12.1 L (16.0-40.0) % Butts % (Auto) 7.4 (0.0-15.0) % Eos % (Auto) 0.6 (0.0-7.0) % Baso % (Auto) 0.1 (0.0-1.5) % Neut # (Auto) 17.4 H (1.4-5.7) K/uL Lymph # (Auto) 2.6 H (0.6-2.4) K/uL Butts # (Auto) 1.6 H (0.0-0.8) K/uL Eos # (Auto) 0.1 (0.0-0.7) K/uL Baso # (Auto) 0.0 (0.0-0.1) K/uL Nucleated RBC % 0.0 /100WBC Nucleated RBCs # 0 K/uL Sodium 136 (136-145) mmol/L Potassium 3.4 L (3.5-5.1) mmol/L Chloride 103 (98-107) mmol/L Carbon Dioxide 20.4 L (21.0-32.0) mmol/L BUN 8 (7.0-18.0) mg/dL Creatinine 0.7 (0.6-1.0) mg/dL Est Cr Clr Drug Dosing 118.43 mL/min Estimated GFR (MDRD) > 60.0 ml/min Glucose 80 (74-106) mg/dL Calcium 9.2 (8.5-10.1) mg/dL Total Bilirubin 0.5 (0.2-1.0) mg/dL AST 9 L (15-37) IU/L ALT 23 (14-63) IU/L Alkaline Phosphatase 63 (46-116) U/L Total Protein 7.8 (6.4-8.2) g/dL Albumin 3.9 (3.4-5.0) g/dL Globulin 3.9 H (2.0-3.5) g/dL Albumin/Globulin Ratio 1.0 L (1.3-2.8) Urine Color YELLOW Urine Appearance CLOUDY Urine pH 6.5 (5.0-8.0) Ur Specific [place] 1.020 (1.001-1.035) Urine Protein 30 (NEGATIVE) mg/dL Urine Glucose (UA) NEGATIVE (NEGATIVE) mg/dL Urine Ketones >=80 (NEGATIVE) mg/dL Urine Occult Blood TRACE-INTACT (NEGATIVE) Urine Nitrite NEGATIVE (NEGATIVE) Urine Bilirubin NEGATIVE (NEGATIVE) Urine Urobilinogen 0.2 (<2.0) EU/dL Ur Leukocyte Esterase SMALL (NEGATIVE) Urine RBC 0-1 (0-2/HPF) Urine WBC 2-5 (0-5/HPF) Ur Epithelial Cells MANY (NONE-FEW) Urine Bacteria 3+ H (NEGATIVE) Urine Mucus MODERATE (NONE-MOD) Urine Yeast FEW 12/22/17 Range/Units 20:35 WBC (4.0-11.0) K/uL RBC (4.30-5.90) M/uL Hgb (12.0-16.0) g/dL Hct (36.0-46.0) % MCV (80.0-98.0) fL MCH (27.0-32.0) pg MCHC (31.0-37.0) g/dL RDW Std Deviation (28.0-62.0) fl RDW Coeff of Rudy (11.0-15.0) % Plt Count (150-400) K/uL MPV (7.40-12.00) fL Neut % (Auto) (48.0-80.0) % Lymph % (Auto) (16.0-40.0) % Butts % (Auto) (0.0-15.0) % Eos % (Auto) (0.0-7.0) % Baso % (Auto) (0.0-1.5) % Neut # (Auto) (1.4-5.7) K/uL Lymph # (Auto) (0.6-2.4) K/uL Butts # (Auto) (0.0-0.8) K/uL Eos # (Auto) (0.0-0.7) K/uL Baso # (Auto) (0.0-0.1) K/uL Nucleated RBC % /100WBC Nucleated RBCs # K/uL Sodium (136-145) mmol/L Potassium (3.5-5.1) mmol/L Chloride (98-107) mmol/L Carbon Dioxide (21.0-32.0) mmol/L BUN (7.0-18.0) mg/dL Creatinine (0.6-1.0) mg/dL Est Cr Clr Drug Dosing mL/min Estimated GFR (MDRD) ml/min Glucose (74-106) mg/dL Calcium (8.5-10.1) mg/dL Total Bilirubin (0.2-1.0) mg/dL AST (15-37) IU/L ALT (14-63) IU/L Alkaline Phosphatase (46-116) U/L Total Protein (6.4-8.2) g/dL Albumin (3.4-5.0) g/dL Globulin (2.0-3.5) g/dL Albumin/Globulin Ratio (1.3-2.8) Urine Color YELLOW Urine Appearance CLEAR Urine pH 6.5 (5.0-8.0) Ur Specific [place] 1.015 (1.001-1.035) Urine Protein TRACE (NEGATIVE) mg/dL Urine Glucose (UA) NEGATIVE (NEGATIVE) mg/dL Urine Ketones >=80 (NEGATIVE) mg/dL Urine Occult Blood TRACE-INTACT (NEGATIVE) Urine Nitrite NEGATIVE (NEGATIVE) Urine Bilirubin NEGATIVE (NEGATIVE) Urine Urobilinogen 0.2 (<2.0) EU/dL Ur Leukocyte Esterase NEGATIVE (NEGATIVE) Urine RBC 1-3 (0-2/HPF) Urine WBC 2-5 (0-5/HPF) Ur Epithelial Cells OCCASIONAL (NONE-FEW) Urine Bacteria RARE (NEGATIVE) Urine Mucus LIGHT (NONE-MOD) Urine Yeast Meds: Medications Generic Name Dose Route Start Last Admin Trade Name Jaxq PRN Reason Stop Dose Admin Sodium Chloride 10 ml 12/22/17 19:37 Saline Flush FLUSH ASDIRECTED PRN Keep Vein Open Sodium Chloride 2.5 ml 12/22/17 19:37 Saline Flush FLUSH ASDIRECTED PRN Keep Vein Open Discontinued Medications Generic Name Dose Route Start Last Admin Trade Name Loan PRN Reason Stop Dose Admin Diphenhydramine HCl 50 mg 12/22/17 21:16 Benadryl IVPUSH 12/22/17 21:17 ONETIME ONE Sodium Chloride 1,000 mls @ 999 mls/hr 12/22/17 19:37 12/22/17 19:55 Normal Saline IV 12/22/17 20:37 999 mls/hr STAT ONE Administration Lorazepam 1 mg 12/22/17 21:17 Ativan IVPUSH 12/22/17 21:18 ONETIME ONE Ondansetron HCl 4 mg 12/22/17 19:37 12/22/17 20:00 Zofran IVPUSH 12/22/17 19:38 4 mg ONETIME ONE Administration Departure - Departure Time of Disposition: 21:42 Disposition: Home, Self-Care 01 Condition: Good Clinical Impression: Nausea and vomiting during , Leukocytosis - Discharge Information Referrals: PCP,None [Primary Care Provider] - Forms: ED Department Discharge Additional Instructions: The following information is given to patients seen in the emergency department who are being discharged to home. This information is to outline your options for follow-up care. We provide all patients seen in our emergency department with a follow-up referral. The need for follow-up, as well as the timing and circumstances, are variable depending upon the specifics of your emergency department visit. If you don't have a primary care physician on staff, we will provide you with a referral. We always advise you to contact your personal physician following an emergency department visit to inform them of the circumstance of the visit and for follow-up with them and/or the need for any referrals to a consulting specialist. The emergency department will also refer you to a specialist when appropriate. This referral assures that you have the opportunity for follow-up care with a specialist. All of these measure are taken in an effort to provide you with optimal care, which includes your follow-up. Under all circumstances we always encourage you to contact your private physician who remains a resource for coordinating your care. When calling for follow-up care, please make the office aware that this follow-up is from your recent emergency room visit. If for any reason you are refused follow-up, please contact the [facility] Emergency Department at and asked to speak to the emergency department charge nurse. [facility] [address] [place] [id number] 1. Follow up with Deputy Building Guard, please call in the morning to schedule appointment 2. Return to ED as needed as discussed - My Orders Last 24 Hours: My Active Orders 12/22/17 19:37 Sodium Chloride 0.9% [Saline Flush] 10 ml FLUSH ASDIRECTED PRN Sodium Chloride 0.9% [Saline Flush] 2.5 ml FLUSH ASDIRECTED PRN Saline Lock Insert [OM.PC] Stat 12/22/17 19:50 CULTURE URINE [RM] Stat 12/22/17 21:22 CULTURE BLOOD [BC] Stat CULTURE BLOOD [BC] Stat LACTATE WITH REFLEX [BG] Stat Blood Culture x2 Reflex Set [OM.PC] Stat - Assessment/Plan Last 24 Hours: My Active Orders 12/22/17 19:37 Sodium Chloride 0.9% [Saline Flush] 10 ml FLUSH ASDIRECTED PRN Sodium Chloride 0.9% [Saline Flush] 2.5 ml FLUSH ASDIRECTED PRN Saline Lock Insert [OM.PC] Stat 12/22/17 19:50 CULTURE URINE [RM] Stat 12/22/17 21:22 CULTURE BLOOD [BC] Stat CULTURE BLOOD [BC] Stat LACTATE WITH REFLEX [BG] Stat Blood Culture x2 Reflex Set [OM.PC] Stat
[2017-12-22 20:28] LABS: CHLORIDE,CL 103 mmol/L (98-107); SODIUM,NA 136 mmol/L (136-145)
[2017-12-22] MEDS ORDERED: diphenhydrAMINE 50 MG/ML SDV IVPUSH ONE (21:16)
[2017-12-22] MEDS ORDERED: LORazepam 2 MG/ML SDV IVPUSH ONE (21:17)
== END 2017-12-22 22:11 | disposition home or self-care (01) ==
LOC: MW.ED 19:13
DX: O21.9 Vomiting of pregnancy, unspecified (principal); O99.111 Other diseases of the blood and blood-forming organs and certain disorders involving the immune mechanism complicating pregnancy, first trimester; D72.829 Elevated white blood cell count, unspecified; Z3A.10 10 weeks gestation of pregnancy; Z88.6 Allergy status to analgesic agent
CPT/HCPCS: 80053; 81001; 83605; 85025; 87040; 87086; 96361; 96374; 99284; J2405; J7040

== ENCOUNTER 2018-06-22 07:04 | Inpatient (IN) | payer MEDICAID ==
[2018-06-22] MEDS ORDERED: Butorphanol 1 MG/ML SDV IVPUSH PRN (07:27)
[2018-06-22] MEDS ORDERED: Lidocaine 1% 50 ML MDV INJECT PRN (07:27)
[2018-06-22] MEDS ORDERED: Tranexamic Acid 1,000 MG in Sodium Chloride 0.9% 100 ML IV PRN (07:27)
[2018-06-22] MEDS ORDERED: Misoprostol 200 MCG Tab PO PRN (07:27)
[2018-06-22] MEDS ORDERED: Nalbuphine 10 MG/1 ML Vial IVPUSH PRN (07:27)
[2018-06-22] MEDS ORDERED: Carboprost Tromethamine 250 MCG/1 ML Amp IM PRN (07:27)
[2018-06-22] MEDS ORDERED: Sodium Chloride 0.9% 10 ML SDV IV PRN (07:27)
[2018-06-22] MEDS ORDERED: Water For Irrigation,Sterile 1,000 ML Container IRR PRN (07:27)
[2018-06-22] MEDS ORDERED: Sodium Chloride 0.9% 10 ML Syringe FLUSH PRN (07:27)
[2018-06-22] MEDS ORDERED: Methylergonovine 0.2 MG/1 ML Amp IM PRN (07:27)
[2018-06-22] MEDS ORDERED: Sodium Chloride 0.9% 2.5 ML Syringe FLUSH PRN (07:27)
[2018-06-22] MEDS ORDERED: Oxytocin/0.9 % Sodium Chloride 30 UNIT/500 ML BAG IV SCH ×2 (07:30→11:30)
[2018-06-22] MEDS: Lactated Ringers 1,000 ML IV SCH ×3 (12:39→20:30)
--- NOTE | 2018-06-22 19:35 | PCM.PREANE ---
Preanesthetic Assessment - Anesthesia/Transfusion/Family Hx Anesthesia History: Prior Anesthesia Without Reaction Family History of Anesthesia Reaction: No Transfusion History: No Prior Transfusion(s) - Review of Systems General: No Symptoms Pulmonary: No Symptoms Cardiovascular: No Symptoms Gastrointestinal: No Symptoms Neurological: No Symptoms Other: Reports: None - Physical Assessment Height: 5 ft 7 in Weight: 87.543 kg ASA Class: 2 Mental Status: Alert & Oriented x3 Airway Class: Mallampati = 2 Dentition: Reports: Normal Dentition Thyro-Mental Finger Breadths: 3 Mouth Opening Finger Breadths: 3 ROM/Head Extension: Full Lungs: Clear to Auscultation, Normal Respiratory Effort Cardiovascular: Regular Rate, Regular Rhythm - Lab Values: Laboratory Last Values WBC 15.95 K/uL (4.0-11.0) H 06/22/18 07:46 RBC 4.40 M/uL (4.30-5.90) 06/22/18 07:46 Hgb 11.7 g/dL (12.0-16.0) L 06/22/18 07:46 Hct 34.0 % (36.0-46.0) L 06/22/18 07:46 MCV 77.3 fL (80.0-98.0) L 06/22/18 07:46 MCH 26.6 pg (27.0-32.0) L 06/22/18 07:46 MCHC 34.4 g/dL (31.0-37.0) 06/22/18 07:46 RDW Std Deviation 48.7 fl (28.0-62.0) 06/22/18 07:46 RDW Coeff of Rudy 17 % (11.0-15.0) H 06/22/18 07:46 Plt Count 290 K/uL (150-400) 06/22/18 07:46 MPV 10.80 fL (7.40-12.00) 06/22/18 07:46 Nucleated RBC % 0.0 /100WBC 06/22/18 07:46 Nucleated RBCs # 0 K/uL 06/22/18 07:46 Blood Type A POSITIVE 06/22/18 07:46 Antibody Screen NEGATIVE 06/22/18 07:46 - Allergies Allergies/Adverse Reactions: Allergies Allergy/AdvReac Type Severity Reaction Status Date / Time ibuprofen Allergy Abdominal Verified 06/11/18 16:51 Pain raspberry Allergy Rash Verified 06/11/18 16:51 - Acknowledgements Anesthesia Type Planned: Epidural Pt an Appropriate Candidate for the Planned Anesthesia: Yes Alternatives and Risks of Anesthesia Discussed w Pt/Guardian: Yes Pt/Guardian Understands and Agrees with Anesthesia Plan: Yes PreAnesthesia Questionnaire HEENT History: Reports: None Cardiovascular History: Reports: None Respiratory History: Reports: None Gastrointestinal History: Reports: GERD Genitourinary History: Reports: None SENIOR SEARCH MARKETING ANALYST History: Reports: : 3 Para: 0 LMP (Approximate): Musculoskeletal History: Reports: None Neurological History: Reports: Seizure Psychiatric History: Reports: Suicidal Ideation Endocrine/Metabolic History: Reports: Obesity/BMI 30+ Hematologic History: Reports: Anemia Immunologic History: Reports: None Oncologic (Cancer) History: Reports: None Dermatologic History: Reports: None - Infectious Disease History Infectious Disease History: Reports: None - Past Surgical History Head Surgeries/Procedures: Reports: None HEENT Surgical History: Reports: Oral Surgery ([place] teeth extraction) Cardiovascular Surgical History: Reports: None Respiratory Surgical History: Reports: None GI Surgical History: Reports: None Female Surgical History: Reports: None Musculoskeletal Surgical History: Reports: None Dermatological Surgical History: Reports: None - SUBSTANCE USE Smoking Status *Q: Current Every Day Smoker Tobacco Use Within Last Twelve Months: Cigarettes Second Hand Smoke Exposure: Yes Recreational Drug Use History: No - HOME MEDS Home Medications: Home Meds Acetaminophen [Tylenol] 03/30/18 [History] PNV #116/Iron Fumarate/FA/DHA [Expecta Combo Pack] 1 tab PO DAILY 03/30 [History] - CURRENT (IN HOUSE) MEDS Current Meds: Current Medications Butorphanol Tartrate (Stadol) 1 mg IVPUSH Q1H PRN PRN Reason: Pain Last Admin: 06/22/18 16:10 Dose: 1 mg Carboprost Tromethamine (Hemabate Ds) 250 mcg IM ASDIRECTED PRN PRN Reason: Post Hemorrhage Lactated Ringer's (Ringers, Lactated) 1,000 mls @ 150 mls/hr IV ASDIRECTED RITA Last Admin: 06/22/18 19:29 Dose: 150 mls/hr Oxytocin/Sodium Chloride (Oxytocin 30 Unit/500 Ml-Ns) 30 unit in 500 mls @ 500 mls/hr IV TITRATE RITA Tranexamic Acid 1,000 mg/ (Sodium Chloride) 110 mls @ 660 mls/hr IV ONETIME PRN PRN Reason: Bleeding Oxytocin/Sodium Chloride (Oxytocin 30 Unit/500 Ml-Ns) 30 unit in 500 mls @ 2 mls/hr IV TITRATE RITA; Protocol Last Infusion: 06/22/18 15:32 Dose: 10 munits/min, 10 mls/hr Lidocaine HCl (Xylocaine 1%) 50 ml INJECT ONETIME PRN PRN Reason: Laceration repair Methylergonovine Maleate (Methergine) 0.2 mg IM ASDIRECTED PRN PRN Reason: Post Hemorrhage Misoprostol (Cytotec) 200 mcg PO ONETIME PRN PRN Reason: Post Hemorrhage Nalbuphine HCl (Nubain) 10 mg IVPUSH Q1H PRN PRN Reason: Pain (severe 7-10) Sodium Chloride (Saline Flush) 10 ml FLUSH ASDIRECTED PRN PRN Reason: Keep Vein Open Sodium Chloride (Saline Flush) 2.5 ml FLUSH ASDIRECTED PRN PRN Reason: Keep Vein Open Sodium Chloride (Normal Saline) 10 ml IV ASDIRECTED PRN PRN Reason: IV Use Sterile Water (Sterile Water For Irrigation) 1,000 ml IRR ASDIRECTED PRN PRN Reason: delivery
[2018-06-22] MEDS ORDERED: Lidocaine HCl/EPINEPHrine 5 ML IJ ONE (19:36)
[2018-06-22] MEDS ORDERED: Bupivacaine 0.5% 10 ML SDV ONE (23:37)
[2018-06-23] MEDS ORDERED: Lanolin 100% Cream 7 GM Tube TOP PRN (03:05)
[2018-06-23] MEDS ORDERED: Bisacodyl 10 MG Supp RECTAL PRN (03:05)
[2018-06-23] MEDS ORDERED: Acetaminophen 500 MG Tab PO PRN ×2 (03:05)
[2018-06-23] MEDS ORDERED: Benzocaine/Menthol 20%-0.5% Spray 78 GM Cannister TOP PRN (03:05)
[2018-06-23] MEDS ORDERED: Docusate Sodium 100 MG Cap PO PRN (03:05)
[2018-06-23] MEDS ORDERED: Witch Hazel Medicated Pads 40/Jar TOP PRN (03:05)
--- NOTE | 2018-06-23 03:11 | PCM.DEL ---
L & D Note - General Info Date of Service: 06/23/18 Mother's Due Date: 07/15/18 - Delivery Note Labor: Induced by Oxytocin (after PROM) Delivery Outcome: Livebirth Infant Delivery Method: Spontaneous Vaginal Delivery-Single Presentation: Left Occiput Anterior (YOVANA) Nuchal Cord: Reduced Anesthesia Type: Epidural Amniotic Fluid Description: Clear Episiotomy Type: None Laceration: None Placenta: Intact, Spontaneous Cord: 3 Vessels Resuscitation Needed: No [place]: Bulb Syringe Score 1 min: 8 Score 5 min: 9 Delivery Comments (Free Text/Narrative):: Liveborn female 2430 grams. - General Info Date of Service: 06/23/18 - Patient Data Weight - Most Recent: 87.543 kg Lab Results Last 24 Hours: Laboratory Results - last 24 hr 06/22/18 06/22/18 Range/Units 07:46 07:46 WBC 15.95 H (4.0-11.0) K/uL RBC 4.40 (4.30-5.90) M/uL Hgb 11.7 L (12.0-16.0) g/dL Hct 34.0 L (36.0-46.0) % MCV 77.3 L (80.0-98.0) fL MCH 26.6 L (27.0-32.0) pg MCHC 34.4 (31.0-37.0) g/dL RDW Std Deviation 48.7 (28.0-62.0) fl RDW Coeff of Rudy 17 H (11.0-15.0) % Plt Count 290 (150-400) K/uL MPV 10.80 (7.40-12.00) fL Nucleated RBC % 0.0 /100WBC Nucleated RBCs # 0 K/uL Blood Type A POSITIVE Antibody Screen NEGATIVE Med Orders - Current: Current Medications Discontinued Medications Bupivacaine HCl (Sensorcaine-Mpf 0.5%) Confirm Administered Dose 10 ml .ROUTE .STK-MED ONE Stop: 06/22/18 23:38 Butorphanol Tartrate (Stadol) 1 mg IVPUSH Q1H PRN PRN Reason: Pain Last Admin: 06/22/18 16:10 Dose: 1 mg Carboprost Tromethamine (Hemabate Ds) 250 mcg IM ASDIRECTED PRN PRN Reason: Post Hemorrhage Lactated Ringer's (Ringers, Lactated) 1,000 mls @ 150 mls/hr IV ASDIRECTED RITA Last Admin: 06/22/18 20:30 Dose: 150 mls/hr Oxytocin/Sodium Chloride (Oxytocin 30 Unit/500 Ml-Ns) 30 unit in 500 mls @ 500 mls/hr IV TITRATE RITA Tranexamic Acid 1,000 mg/ (Sodium Chloride) 110 mls @ 660 mls/hr IV ONETIME PRN PRN Reason: Bleeding Oxytocin/Sodium Chloride (Oxytocin 30 Unit/500 Ml-Ns) 30 unit in 500 mls @ 2 mls/hr IV TITRATE RITA; Protocol Last Infusion: 06/23/18 00:20 Dose: 20 munits/min, 20 mls/hr Fentanyl/Bupivacaine HCl (Azjxarnr-Ptzsi-Ya 2 Mcg/Ml-0.125%) Confirm Administered Dose 100 mls @ as directed .ROUTE .STK-MED ONE Stop: 06/22/18 19:37 Fentanyl/Bupivacaine HCl (Xpcceocx-Jsqrl-Ad 2 Mcg/Ml-0.125%) Confirm Administered Dose 100 mls @ as directed .ROUTE .STK-MED ONE Stop: 06/22/18 23:26 Lidocaine HCl (Xylocaine 1%) 50 ml INJECT ONETIME PRN PRN Reason: Laceration repair Lidocaine/Epinephrine (Lidocaine 1.5%-Epi 1:200,000) Confirm Administered Dose 5 ml IJ .STK-MED ONE Stop: 06/22/18 19:37 Methylergonovine Maleate (Methergine) 0.2 mg IM ASDIRECTED PRN PRN Reason: Post Hemorrhage Misoprostol (Cytotec) 200 mcg PO ONETIME PRN PRN Reason: Post Hemorrhage Nalbuphine HCl (Nubain) 10 mg IVPUSH Q1H PRN PRN Reason: Pain (severe 7-10) Sodium Chloride (Saline Flush) 10 ml FLUSH ASDIRECTED PRN PRN Reason: Keep Vein Open Sodium Chloride (Saline Flush) 2.5 ml FLUSH ASDIRECTED PRN PRN Reason: Keep Vein Open Sodium Chloride (Normal Saline) 10 ml IV ASDIRECTED PRN PRN Reason: IV Use Sterile Water (Sterile Water For Irrigation) 1,000 ml IRR ASDIRECTED PRN PRN Reason: delivery - Problem List & Annotations (1) premature rupture of membranes (PPROM) delivered, current hospitalization SNOMED Code(s): 017694130, 591761856 Code(s): O42.919 - PRETRM ALEXANDER ROM, UNSP TIME BETW RUPT AND ONST LABR, UNSP TRI Status: Acute Current Visit: Yes (2) Vaginal delivery SNOMED Code(s): 362277176 Code(s): O80 - ENCOUNTER FOR FULL-TERM UNCOMPLICATED DELIVERY Status: Acute Current Visit: Yes - Problem List Review Problem List Initiated/Reviewed/Updated: Yes - My Orders Last 24 Hours: My Active Orders 06/23/18 02:50 BLOOD GAS ARTERIAL UMBILICAL [BG] Urgent BLOOD GAS VENOUS UMBILICAL [BG] Urgent 06/23/18 03:05 Patient Status [ADT] Routine May Shower [RC] ASDIRECTED Up ad Rosalind [RC] ASDIRECTED Vital Signs [RC] PER UNIT ROUTINE Acetaminophen [Tylenol Extra Strength] 1,000 mg PO Q4H PRN Acetaminophen [Tylenol Extra Strength] 500 mg PO Q4H PRN Benzocaine/Menthol [Dermoplast Pain Relief 20%-0.5% Hugoton] 78 gm TOP ASDIRECTED PRN Bisacodyl [Dulcolax] 10 mg RECTAL ONETIME PRN Docusate Sodium [Colace] 100 mg PO BID PRN Lanolin [Lansinoh HPA] See Dose Instructions TOP ASDIRECTED PRN Witch Janeth [Tucks] 1 pad TOP ASDIRECTED PRN oxyCODONE 5 mg PO Q2H PRN Assess Lochia [WOMSER] Per Unit Routine Assess Uterine Involution [WOMSER] Per Unit Routine Perineal Care [OM.PC] Per Unit Routine Peripheral IV Discontinue [OM.PC] Routine Resuscitation Status Routine 06/23/18 Breakfast Regular Diet [DIET] 06/24/18 05:11 HEMOGLOBIN/HEMATOCRIT,HH [HEME] Timed
[2018-06-23] MEDS ORDERED: Oxytocin/0.9 % Sodium Chloride 30 UNIT/500 ML BAG ONE (03:15)
--- NOTE | 2018-06-23 06:41 | OR ---
SURGEON: Katalina Salinas M.D. DATE OF PROCEDURE: 06/23/2018 PREOPERATIVE DIAGNOSES: A 36-5/7 weeks' intrauterine , premature rupture of membranes with induction of labor, term spontaneous vaginal delivery. POSTOPERATIVE DIAGNOSES: A 36-5/7 weeks' intrauterine , premature rupture of membranes with induction of labor, term spontaneous vaginal delivery. PROCEDURE: 1. Pitocin induction of labor. 2. Term spontaneous vaginal delivery. ANESTHESIA: Epidural. ESTIMATED BLOOD LOSS: Less than 300 mL. FINDINGS: Live born female. score of 8 and 9. Weighing 24 30 g. Placenta spontaneous. Schultze intact with 3 vessels. Perineum intact. BRIEF HISTORY: This is a 28-year-old female. She is G1, P0. She presents at 36-4/7 weeks' gestation, known to be group B strep negative, spontaneous rupture of membranes at home. She was admitted to Labor and Delivery. She was started on Pitocin. She was initially 2 cm dilated, 60% effaced. She had category 1 heart tones. She received an epidural for pain control. She progressed to complete. DESCRIPTION OF PROCEDURE: With the patient in dorsal lithotomy position, the patient pushed over a 45 minute time period to a 5+ station, at which time the head was delivered spontaneously and atraumatically over the perineum with support with subsequent delivery of the infant's shoulders and body without any difficulty. The infant was bulb suctioned by nose and mouth, and the cord was clamped x2 and cut after it had ceased to pulsate, and the was handed to the mother in the presence of nurse attending delivery. The infant is a liveborn female, scores 8 and 9, weighing 2430 g. Cord blood was collected for cord ABGs as well as routine cord blood sampling. Pitocin was initiated after delivery of the infant to assist with delivery the placenta, which was delivered spontaneously. Schultze intact with 3 vessels. Upon inspection the pelvis and perineum, there were no periurethral, vaginal sidewall, cervical, rectal, or perineal lacerations. EBL was less than 200 mL. There were no complications. Mother and are in LDR in good condition. DOT / MARIO /[id number] FRANCOIS
--- NOTE | 2018-06-23 08:40 | PCM48HPAN ---
Post Anesthesia Note - EVALUATION WITHIN 48HRS OF ANESTHETIC Vital Signs in Normal Range: Yes Patient Participated in Evaluation: Yes Respiratory Function Stable: Yes Airway Patent: Yes Cardiovascular Function Stable: Yes Hydration Status Stable: Yes Pain Control Satisfactory: Yes Nausea and Vomiting Control Satisfactory: Yes Mental Status Recovered: Yes Resp Rate: 17
[2018-06-23] MEDS: oxyCODONE 5 MG Tab PO PRN ×2 (15:16→22:11)
--- NOTE | 2018-06-24 08:50 | PCM.PNPP ---
<Arti Brunson - Last Filed: 06/24/18 08:43> - General Info Date of Service: 06/24/18 Admission Dx/Problem (Free Text): PPROM with IOL, 36.5 wga IUP, Subjective Update: [place] is PP day 1 for at 36.5 for PPROM with IOL. She notes no pain and is ambulating, voiding, and eating without issue. She states that she feels well to be discharged to home today. Functional Status: Reports: Pain Controlled, Tolerating Diet, Ambulating, Urinating - Review of Systems General: Reports: No Symptoms Pulmonary: Reports: No Symptoms Cardiovascular: Reports: No Symptoms Gastrointestinal: Reports: No Symptoms Genitourinary: Reports: No Symptoms Musculoskeletal: Reports: No Symptoms Skin: Reports: No Symptoms Neurological: Reports: No Symptoms Psychiatric: Reports: No Symptoms - General Info Date of Service: 06/24/18 - Patient Data Vital Signs - Most Recent: Last Vital Signs Temp 98.1 F 06/24/18 04:50 Pulse 77 06/24/18 04:50 Resp 18 06/24/18 04:50 BP 110/57 L 06/24/18 04:50 Pulse Ox 98 06/24/18 04:50 Weight - Most Recent: 87.543 kg Lab Results - Last 24 Hours: Laboratory Results - last 24 hr 06/24/18 Range/Units 04:55 Hgb 10.5 L (12.0-16.0) g/dL Hct 30.5 L (36.0-46.0) % Med Orders - Current: Current Medications Acetaminophen (Tylenol Extra Strength) 500 mg PO Q4H PRN PRN Reason: Pain Last Admin: 06/23/18 22:10 Dose: 500 mg Acetaminophen (Tylenol Extra Strength) 1,000 mg PO Q4H PRN PRN Reason: Pain Benzocaine/Menthol (Dermoplast Pain Relief 20%-0.5% Lorimor) 78 gm TOP ASDIRECTED PRN PRN Reason: Perineal Comfort Measure Bisacodyl (Dulcolax) 10 mg RECTAL ONETIME PRN PRN Reason: Constipation Docusate Sodium (Colace) 100 mg PO BID PRN PRN Reason: Constipation Emollient Ointment (Lansinoh Hpa) 0 gm TOP ASDIRECTED PRN PRN Reason: Sore Nipples Oxycodone HCl (Oxycodone) 5 mg PO Q2H PRN PRN Reason: Pain Last Admin: 06/23/18 22:11 Dose: 5 mg Witch Janeth (Tucks) 1 pad TOP ASDIRECTED PRN PRN Reason: comfort care Discontinued Medications Bupivacaine HCl (Sensorcaine-Mpf 0.5%) Confirm Administered Dose 10 ml .ROUTE .STK-MED ONE Stop: 06/22/18 23:38 Butorphanol Tartrate (Stadol) 1 mg IVPUSH Q1H PRN PRN Reason: Pain Last Admin: 06/22/18 16:10 Dose: 1 mg Carboprost Tromethamine (Hemabate Ds) 250 mcg IM ASDIRECTED PRN PRN Reason: Post Hemorrhage Lactated Ringer's (Ringers, Lactated) 1,000 mls @ 150 mls/hr IV ASDIRECTED RITA Last Admin: 06/22/18 20:30 Dose: 150 mls/hr Oxytocin/Sodium Chloride (Oxytocin 30 Unit/500 Ml-Ns) 30 unit in 500 mls @ 500 mls/hr IV TITRATE RITA Last Admin: 06/23/18 03:17 Dose: 500 mls/hr Tranexamic Acid 1,000 mg/ (Sodium Chloride) 110 mls @ 660 mls/hr IV ONETIME PRN PRN Reason: Bleeding Oxytocin/Sodium Chloride (Oxytocin 30 Unit/500 Ml-Ns) 30 unit in 500 mls @ 2 mls/hr IV TITRATE RITA; Protocol Last Infusion: 06/23/18 00:20 Dose: 20 munits/min, 20 mls/hr Fentanyl/Bupivacaine HCl (Yyrprhav-Hgevv-Fs 2 Mcg/Ml-0.125%) Confirm Administered Dose 100 mls @ as directed .ROUTE .STK-MED ONE Stop: 06/22/18 19:37 Fentanyl/Bupivacaine HCl (Jabzsmrs-Sqman-Xq 2 Mcg/Ml-0.125%) Confirm Administered Dose 100 mls @ as directed .ROUTE .STK-MED ONE Stop: 06/22/18 23:26 Oxytocin/Sodium Chloride (Oxytocin 30 Unit/500 Ml-Ns) Confirm Administered Dose 30 unit in 500 mls @ as directed .ROUTE .STK-MED ONE Stop: 06/23/18 03:16 Last Admin: 06/24/18 00:19 Dose: Not Given Lidocaine HCl (Xylocaine 1%) 50 ml INJECT ONETIME PRN PRN Reason: Laceration repair Lidocaine/Epinephrine (Lidocaine 1.5%-Epi 1:200,000) Confirm Administered Dose 5 ml IJ .STK-MED ONE Stop: 06/22/18 19:37 Methylergonovine Maleate (Methergine) 0.2 mg IM ASDIRECTED PRN PRN Reason: Post Hemorrhage Misoprostol (Cytotec) 200 mcg PO ONETIME PRN PRN Reason: Post Hemorrhage Nalbuphine HCl (Nubain) 10 mg IVPUSH Q1H PRN PRN Reason: Pain (severe 7-10) Sodium Chloride (Saline Flush) 10 ml FLUSH ASDIRECTED PRN PRN Reason: Keep Vein Open Sodium Chloride (Saline Flush) 2.5 ml FLUSH ASDIRECTED PRN PRN Reason: Keep Vein Open Sodium Chloride (Normal Saline) 10 ml IV ASDIRECTED PRN PRN Reason: IV Use Sterile Water (Sterile Water For Irrigation) 1,000 ml IRR ASDIRECTED PRN PRN Reason: delivery Last Admin: 06/23/18 02:45 Dose: 1,000 ml - Interaction Disposition, : [place] at Bedside Interaction: Other (see below) (sleeping in [facility]) Infant Feeding: Attempted ; Nursed Fair/Poor Support Person: Significant Other - Recovery Exam Fundal Tone: Firm Fundal Level: 1 Fingerbreadths Below Umbilicus Fundal Placement: Midline Lochia Amount: Scant, Small Lochia Color: Rubra/Red Perineum Description: Intact, Minimal Bruising/Swelling Episiotomy/Laceration: None Bladder Status: Voiding Urinary Elimination: Voided - Exam General: Alert, Oriented HEENT: Pupils Equal, Pupils Reactive, EOMI, Mucous Membr. Moist/[place] Neck: Supple Lungs: Clear to Auscultation, Normal Respiratory Effort Cardiovascular: Regular Rate, Regular Rhythm GI/Abdominal Exam: Normal Bowel Sounds, Soft, Non-Tender, No Organomegaly, No Distention Extremities: Normal Inspection, Normal Range of Motion, Non-Tender, No Pedal Edema Skin: Warm, Dry, Intact Wound/Incisions: Healing Well Neurological: No New Focal Deficit Psy/Mental Status: Alert, Normal Affect, Normal Mood - Problem List & Annotations (1) premature rupture of membranes (PPROM) delivered, current hospitalization SNOMED Code(s): 120827951, 523606471 Code(s): O42.919 - PRETRM ALEXANDER ROM, UNSP TIME BETW RUPT AND ONST LABR, UNSP TRI Status: Acute Current Visit: Yes (2) Vaginal delivery SNOMED Code(s): 744958509 Code(s): O80 - ENCOUNTER FOR FULL-TERM UNCOMPLICATED DELIVERY Status: Acute Current Visit: Yes - Problem List Review Problem List Initiated/Reviewed/Updated: Yes - Assessment Assessment:: [place] is who is day 1 for at 36.5 due to PPROM. She has well controlled pain, reassuring labs, and vital signs are stable. - Plan Plan:: Continue cares discharge to home today follow-up at 6 weeks at [facility] continue pain management prn <Artur Amaral - Last Filed: 06/24/18 08:55> - General Info Subjective Update: 28yo P1 s/p PPD 1 , stable , lochia , Attempting to breastfeed with nipple shield - Patient Data Vital Signs - Most Recent: Last Vital Signs Temp 36.7 C 06/24/18 04:50 Pulse 77 06/24/18 04:50 Resp 18 06/24/18 04:50 BP 110/57 L 06/24/18 04:50 Pulse Ox 98 06/24/18 04:50 Lab Results - Last 24 Hours: Laboratory Results - last 24 hr 06/24/18 Range/Units 04:55 Hgb 10.5 L (12.0-16.0) g/dL Hct 30.5 L (36.0-46.0) % Med Orders - Current: Current Medications Acetaminophen (Tylenol Extra Strength) 500 mg PO Q4H PRN PRN Reason: Pain Last Admin: 06/23/18 22:10 Dose: 500 mg Acetaminophen (Tylenol Extra Strength) 1,000 mg PO Q4H PRN PRN Reason: Pain Benzocaine/Menthol (Dermoplast Pain Relief 20%-0.5% Lorimor) 78 gm TOP ASDIRECTED PRN PRN Reason: Perineal Comfort Measure Bisacodyl (Dulcolax) 10 mg RECTAL ONETIME PRN PRN Reason: Constipation Docusate Sodium (Colace) 100 mg PO BID PRN PRN Reason: Constipation Emollient Ointment (Lansinoh Hpa) 0 gm TOP ASDIRECTED PRN PRN Reason: Sore Nipples Oxycodone HCl (Oxycodone) 5 mg PO Q2H PRN PRN Reason: Pain Last Admin: 06/23/18 22:11 Dose: 5 mg Witch Janeth (Tucks) 1 pad TOP ASDIRECTED PRN PRN Reason: comfort care Discontinued Medications Bupivacaine HCl (Sensorcaine-Mpf 0.5%) Confirm Administered Dose 10 ml .ROUTE .STK-MED ONE Stop: 06/22/18 23:38 Butorphanol Tartrate (Stadol) 1 mg IVPUSH Q1H PRN PRN Reason: Pain Last Admin: 06/22/18 16:10 Dose: 1 mg Carboprost Tromethamine (Hemabate Ds) 250 mcg IM ASDIRECTED PRN PRN Reason: Post Hemorrhage Lactated Ringer's (Ringers, Lactated) 1,000 mls @ 150 mls/hr IV ASDIRECTED RITA Last Admin: 06/22/18 20:30 Dose: 150 mls/hr Oxytocin/Sodium Chloride (Oxytocin 30 Unit/500 Ml-Ns) 30 unit in 500 mls @ 500 mls/hr IV TITRATE RITA Last Admin: 06/23/18 03:17 Dose: 500 mls/hr Tranexamic Acid 1,000 mg/ (Sodium Chloride) 110 mls @ 660 mls/hr IV ONETIME PRN PRN Reason: Bleeding Oxytocin/Sodium Chloride (Oxytocin 30 Unit/500 Ml-Ns) 30 unit in 500 mls @ 2 mls/hr IV TITRATE RITA; Protocol Last Infusion: 06/23/18 00:20 Dose: 20 munits/min, 20 mls/hr Fentanyl/Bupivacaine HCl (Zkehbond-Szejz-Gf 2 Mcg/Ml-0.125%) Confirm Administered Dose 100 mls @ as directed .ROUTE .STK-MED ONE Stop: 06/22/18 19:37 Fentanyl/Bupivacaine HCl (Xfxqswqj-Thlwu-Pr 2 Mcg/Ml-0.125%) Confirm Administered Dose 100 mls @ as directed .ROUTE .STK-MED ONE Stop: 06/22/18 23:26 Oxytocin/Sodium Chloride (Oxytocin 30 Unit/500 Ml-Ns) Confirm Administered Dose 30 unit in 500 mls @ as directed .ROUTE .STK-MED ONE Stop: 06/23/18 03:16 Last Admin: 06/24/18 00:19 Dose: Not Given Lidocaine HCl (Xylocaine 1%) 50 ml INJECT ONETIME PRN PRN Reason: Laceration repair Lidocaine/Epinephrine (Lidocaine 1.5%-Epi 1:200,000) Confirm Administered Dose 5 ml IJ .STK-MED ONE Stop: 06/22/18 19:37 Methylergonovine Maleate (Methergine) 0.2 mg IM ASDIRECTED PRN PRN Reason: Post Hemorrhage Misoprostol (Cytotec) 200 mcg PO ONETIME PRN PRN Reason: Post Hemorrhage Nalbuphine HCl (Nubain) 10 mg IVPUSH Q1H PRN PRN Reason: Pain (severe 7-10) Sodium Chloride (Saline Flush) 10 ml FLUSH ASDIRECTED PRN PRN Reason: Keep Vein Open Sodium Chloride (Saline Flush) 2.5 ml FLUSH ASDIRECTED PRN PRN Reason: Keep Vein Open Sodium Chloride (Normal Saline) 10 ml IV ASDIRECTED PRN PRN Reason: IV Use Sterile Water (Sterile Water For Irrigation) 1,000 ml IRR ASDIRECTED PRN PRN Reason: delivery Last Admin: 06/23/18 02:45 Dose: 1,000 ml - My Orders Last 24 Hours: My Active Orders 06/24/18 08:49 Ready for Discharge [RC] PER UNIT ROUTINE - Plan Plan:: Follow in 6 weeks , stable
[2018-06-24] MEDS: oxyCODONE 5 MG Tab PO PRN (10:21)
[2018-06-24 10:26] VITALS: BP 125/93
== END 2018-06-24 12:58 | disposition home or self-care (01) | DRG 807 ==
LOC: MW.OBCHECK 07:04 → MW.OB 07:06 → MW.OBCHECK 07:28 → OBSVTOIN 06-23 02:51 → MW.OB 06-23 14:51
PROVIDERS: ADMIT Obstetrics & Gynecology; ATTEND Obstetrics & Gynecology
PROC: 10E0XZZ Delivery of Products of Conception, External Approach (ICD-10-PCS; principal; 2018-06-23)
PROC: 3E033VJ Introduction of Other Hormone into Peripheral Vein, Percutaneous Approach (ICD-10-PCS; 2018-06-23)
PROC: 4A1HXCZ Monitoring of Products of Conception, Cardiac Rate, External Approach (ICD-10-PCS; 2018-06-23)
DX: O42.913 Preterm premature rupture of membranes, unspecified as to length of time between rupture and onset of labor, third trimester (principal); O69.81X0 Labor and delivery complicated by cord around neck, without compression, not applicable or unspecified; O76 Abnormality in fetal heart rate and rhythm complicating labor and delivery; O99.214 Obesity complicating childbirth; E66.9 Obesity, unspecified; O99.334 Smoking (tobacco) complicating childbirth; F17.210 Nicotine dependence, cigarettes, uncomplicated; Z3A.36 36 weeks gestation of pregnancy; Z37.0 Single live birth
CPT/HCPCS: 36415; 51702; 59025; 59409; 82803; 85014; 85018; 85027; 86850; 86900; 86901; A9270-GY; J0595; J2590; J7120

== ENCOUNTER 2018-07-12 08:36 | Emergency (ER) | payer MEDICAID ==
[2018-07-12] MEDS ORDERED: Sodium Chloride 0.9% 1,000 ML IV ONE (08:39)
[2018-07-12] MEDS ORDERED: Ondansetron 4 MG/2 ML SDV IVPUSH ONE (08:39)
--- NOTE | 2018-07-12 08:57 | EDM.PDOC ---
ED HPI GENERAL MEDICAL PROBLEM - General Chief Complaint: Abdominal Pain Stated Complaint: PELVIC PAIN Time Seen by Provider: 07/12/18 08:56 Source of Information: Reports: Patient - History of Present Illness INITIAL COMMENTS - FREE TEXT/NARRATIVE: HISTORY AND PHYSICAL: History of present illness: [Patient presents post normal vaginal delivery on 06/23/[address] garcia equally Has a complaint of low pelvic pain and vaginal bleeding and passing some clots consistent with heavy menstruation not using more than 1 pad per hour middle lobe and is normal as well as platelets She was found to have significant urinary tract infection on workup pressures remain stable she is not tachycardic her temp is low-grade at 100 She has no subjective fever nausea vomiting chills sweats no chest pain shortness breath headache dizziness palpitation no bowel or urine symptoms We has not been breast-feeding baby is formula fed ] Review of systems: As per history of present illness and below otherwise all systems reviewed and negative. Past medical history: As per history of present illness and as reviewed below otherwise noncontributory. Surgical history: As per history of present illness and as reviewed below otherwise noncontributory. Social history: No reported history of drug or alcohol abuse. Family history: As per history of present illness and as reviewed below otherwise noncontributory. Physical exam: HEENT: Atraumatic, normocephalic, pupils reactive, negative for conjunctival pallor or scleral icterus, mucous membranes moist, throat clear, neck supple, nontender, trachea midline. Lungs: Clear to auscultation, breath sounds equal bilaterally, chest nontender. Heart: S1S2, regular, negative for clicks, rubs, or JVD. Abdomen: Soft, nondistended, nontender. Negative for masses or hepatosplenomegaly. Negative for costovertebral tenderness. Pelvis: Stable nontender. Genitourinary: Blood and clots in the vaginal vault cervix is 2 cm dilated Rectal: Deferred. Extremities: Atraumatic, negative for cords or calf pain. Neurovascular unremarkable. Neuro: Awake, alert, oriented. Cranial nerves II through XII unremarkable. Cerebellum unremarkable. Motor and sensory unremarkable throughout. Exam nonfocal. Diagnostics: [TBC CMP UA type and screen Pelvic ultrasound Therapeutics: Levaquin 500 by mouth now Dilaudid 0.5 mg IV Methergine 0.2 mg IM Levaquin 500 by mouth daily #10 no refill tramadol I did discuss patient in detail with Dr. Reyna transition of care specialist for use equally, she states they'll have close follow-up within the next couple of days patient should call and arrange. The follow-up Impression: bleeding UTI Cervix 2 cm tive disposition and diagnosis as appropriate pending reevaluation and review of above. Lower Abdomen Pain Score (Numeric/FACES): 10 - Related Data Allergies Allergy/AdvReac Type Severity Reaction Status Date / Time ibuprofen Allergy Abdominal Verified 07/12/18 08:54 Pain raspberry Allergy Rash Verified 07/12/18 08:54 Home Meds: Home Meds . 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 UPPER AND BOTTOM LACER History: Reports: Musculoskeletal History: Reports: None Neurological History: Reports: Seizure Psychiatric History: Reports: Suicidal Ideation Endocrine/Metabolic History: Reports: Obesity/BMI 30+ Hematologic History: Reports: Anemia Immunologic History: Reports: None Oncologic (Cancer) History: Reports: None Dermatologic History: Reports: None - Infectious Disease History Infectious Disease History: Reports: None - Past Surgical History Head Surgeries/Procedures: Reports: None HEENT Surgical History: Reports: Oral Surgery ([place] teeth extraction) Cardiovascular Surgical History: Reports: None Respiratory Surgical History: Reports: None GI Surgical History: Reports: None Female Surgical History: Reports: None Musculoskeletal Surgical History: Reports: None Dermatological Surgical History: Reports: None Social & Family History - Family History Family Medical History: Noncontributory Oncologic: Reports: Brain, Other (See Below) Other Oncologic Family History: stomach - Caffeine Use Caffeine Use: Reports: Coffee ED ROS GENERAL - Review of Systems Review Of Systems: See Below ED EXAM, GENERAL - Physical Exam Exam: See Below Course - Vital Signs Last Recorded V/S: Last Vital Signs Temp 100.0 F 07/12/18 12:47 Pulse 76 07/12/18 13:10 Resp 14 07/12/18 13:10 BP 119/71 07/12/18 13:10 Pulse Ox 97 07/12/18 13:10 - Orders/Labs/Meds Orders: Active Orders 24 hr Category Date Time Status CULTURE URINE [RM] Stat Lab 07/12/18 09:00 Received HYDROmorphone [Dilaudid] Med 07/12/18 12:38 Active 0.5 mg IVPUSH ONETIME PRN Medication Orders Hydromorphone HCl (Dilaudid) 0.5 mg IVPUSH ONETIME PRN PRN Reason: Abdominal Pain Last Admin: 07/12/18 12:45 Dose: 0.5 mg Labs: Laboratory Tests 07/12/18 07/12/18 07/12/18 Range/Units 09:00 09:00 09:14 WBC 22.55 H (4.0-11.0) K/uL RBC 4.77 (4.30-5.90) M/uL Hgb 12.7 (12.0-16.0) g/dL Hct 37.0 (36.0-46.0) % MCV 77.6 L (80.0-98.0) fL MCH 26.6 L (27.0-32.0) pg MCHC 34.3 (31.0-37.0) g/dL RDW Std Deviation 48.1 (28.0-62.0) fl RDW Coeff of Rudy 17 H (11.0-15.0) % Plt Count 377 (150-400) K/uL MPV 10.10 (7.40-12.00) fL Neut % (Auto) MANAGER OF ADMINISTRATION Lymph % (Auto) MANAGER OF ADMINISTRATION [place] % (Auto) MANAGER OF ADMINISTRATION Eos % (Auto) MANAGER OF ADMINISTRATION Baso % (Auto) MANAGER OF ADMINISTRATION Neut # (Auto) MANAGER OF ADMINISTRATION Lymph # (Auto) MANAGER OF ADMINISTRATION [place] # (Auto) MANAGER OF ADMINISTRATION Eos # (Auto) MANAGER OF ADMINISTRATION Baso # (Auto) MANAGER OF ADMINISTRATION Add Manual Diff YES Neutrophils % (Manual) 76 (48.0-80.0) % Band Neutrophils % 5 % Lymphocytes % (Manual) 8 L (16.0-40.0) % Monocytes % (Manual) 8 (0.0-15.0) % Basophils % (Manual) 1 (0.0-1.5) % Metamyelocytes % 1 % Myelocytes % 1 % Nucleated RBC % 0.0 /100WBC Absolute Seg Neuts 17.1 H (1.4-5.7) Band Neutrophils # 1.1 Lymphocytes # (Manual) 1.8 (0.6-2.4) Monocytes # (Manual) 1.8 H (0.0-0.8) Basophils # (Manual) 0.2 H (0.0-0.1) Absolute Metamyelocyte 0.2 Absolute Myelocytes 0.2 Nucleated RBCs # 0 K/uL Lactate (0.20-2.00) mmol/L Sodium (136-145) mmol/L Potassium (3.5-5.1) mmol/L Chloride (98-107) mmol/L Carbon Dioxide (21.0-32.0) mmol/L BUN (7.0-18.0) mg/dL Creatinine (0.6-1.0) mg/dL Est Cr Clr Drug Dosing mL/min Estimated GFR (MDRD) ml/min Glucose (74-106) mg/dL Calcium (8.5-10.1) mg/dL Total Bilirubin (0.2-1.0) mg/dL AST (15-37) IU/L ALT (14-63) IU/L Alkaline Phosphatase (46-116) U/L Total Protein (6.4-8.2) g/dL Albumin (3.4-5.0) g/dL Globulin (2.6-4.0) g/dL Albumin/Globulin Ratio (0.9-1.6) Lipase (73-393) U/L Urine Color YELLOW Urine Appearance SLT CLOUDY Urine pH 6.5 (5.0-8.0) Ur Specific [place] 1.015 (1.001-1.035) Urine Protein NEGATIVE (NEGATIVE) mg/dL Urine Glucose (UA) NEGATIVE (NEGATIVE) mg/dL Urine Ketones NEGATIVE (NEGATIVE) mg/dL Urine Occult Blood LARGE H (NEGATIVE) Urine Nitrite NEGATIVE (NEGATIVE) Urine Bilirubin NEGATIVE (NEGATIVE) Urine Urobilinogen 0.2 (<2.0) EU/dL Ur Leukocyte Esterase MODERATE H (NEGATIVE) Urine RBC 3-5 (0-2/HPF) Urine WBC 30-40 (0-5/HPF) Ur Epithelial Cells OCCASIONAL (NONE-FEW) Amorphous Sediment LIGHT (NEGATIVE) Urine Bacteria 2+ H (NEGATIVE) Urine Mucus LIGHT (NONE-MOD) Urine HCG, Qual NEGATIVE (NEGATIVE) Blood Type Antibody Screen 07/12/18 07/12/18 07/12/18 Range/Units 09:14 09:14 10:25 WBC (4.0-11.0) K/uL RBC (4.30-5.90) M/uL Hgb (12.0-16.0) g/dL Hct (36.0-46.0) % MCV (80.0-98.0) fL MCH (27.0-32.0) pg MCHC (31.0-37.0) g/dL RDW Std Deviation (28.0-62.0) fl RDW Coeff of Rudy (11.0-15.0) % Plt Count (150-400) K/uL MPV (7.40-12.00) fL Neut % (Auto) Lymph % (Auto) [place] % (Auto) Eos % (Auto) Baso % (Auto) Neut # (Auto) Lymph # (Auto) [place] # (Auto) Eos # (Auto) Baso # (Auto) Add Manual Diff Neutrophils % (Manual) (48.0-80.0) % Band Neutrophils % % Lymphocytes % (Manual) (16.0-40.0) % Monocytes % (Manual) (0.0-15.0) % Basophils % (Manual) (0.0-1.5) % Metamyelocytes % % Myelocytes % % Nucleated RBC % /100WBC Absolute Seg Neuts (1.4-5.7) Band Neutrophils # Lymphocytes # (Manual) (0.6-2.4) Monocytes # (Manual) (0.0-0.8) Basophils # (Manual) (0.0-0.1) Absolute Metamyelocyte Absolute Myelocytes Nucleated RBCs # K/uL Lactate 0.6 (0.20-2.00) mmol/L Sodium 142 (136-145) mmol/L Potassium 3.6 (3.5-5.1) mmol/L Chloride 108 H (98-107) mmol/L Carbon Dioxide 22.0 (21.0-32.0) mmol/L BUN 8 (7.0-18.0) mg/dL Creatinine 1.0 (0.6-1.0) mg/dL Est Cr Clr Drug Dosing 82.18 mL/min Estimated GFR (MDRD) > 60.0 ml/min Glucose 94 (74-106) mg/dL Calcium 9.0 (8.5-10.1) mg/dL Total Bilirubin 0.3 (0.2-1.0) mg/dL AST 9 L (15-37) IU/L ALT 18 (14-63) IU/L Alkaline Phosphatase 97 (46-116) U/L Total Protein 7.3 (6.4-8.2) g/dL Albumin 3.3 L (3.4-5.0) g/dL Globulin 4.0 (2.6-4.0) g/dL Albumin/Globulin Ratio 0.8 L (0.9-1.6) Lipase 85 (73-393) U/L Urine Color Urine Appearance Urine pH (5.0-8.0) Ur Specific [place] (1.001-1.035) Urine Protein (NEGATIVE) mg/dL Urine Glucose (UA) (NEGATIVE) mg/dL Urine Ketones (NEGATIVE) mg/dL Urine Occult Blood (NEGATIVE) Urine Nitrite (NEGATIVE) Urine Bilirubin (NEGATIVE) Urine Urobilinogen (<2.0) EU/dL Ur Leukocyte Esterase (NEGATIVE) Urine RBC (0-2/HPF) Urine WBC (0-5/HPF) Ur Epithelial Cells (NONE-FEW) Amorphous Sediment (NEGATIVE) Urine Bacteria (NEGATIVE) Urine Mucus (NONE-MOD) Urine HCG, Qual (NEGATIVE) Blood Type A POSITIVE Antibody Screen NEGATIVE Meds: Medications Generic Name Dose Route Start Last Admin Trade Name Freq PRN Reason Stop Dose Admin Hydromorphone HCl 0.5 mg 07/12/18 12:38 07/12/18 12:45 Dilaudid IVPUSH 0.5 mg ONETIME PRN Administration Abdominal Pain Discontinued Medications Generic Name Dose Route Start Last Admin Trade Name Freq PRN Reason Stop Dose Admin Hydromorphone HCl 1 mg 07/12/18 10:12 07/12/18 10:21 Dilaudid IVPUSH 07/12/18 10:13 Not Given ONETIME ONE Hydromorphone HCl 0.5 mg 07/12/18 12:25 Dilaudid IVPUSH ONETIME PRN Abdominal Pain Sodium Chloride 1,000 mls @ 999 mls/hr 07/12/18 08:39 07/12/18 09:25 Normal Saline IV 07/12/18 09:39 999 mls/hr STAT ONE Administration Piperacillin Sod/Tazobactam 50 mls @ 100 mls/hr 07/12/18 10:15 Sod 3.375 gm/ Sodium Chloride IV Q6H RITA Vancomycin HCl 1 gm/ Sodium 250 mls @ 166 mls/hr 07/12/18 10:11 07/12/18 10: 22 Chloride IV 07/12/18 11:41 Not Given ONETIME ONE Levofloxacin/Dextrose 250 mg/ 50 mls @ 50 mls/hr 07/12/18 12:48 07/12/18 12: 55 Premix IV 07/12/18 13:47 Not Given ONETIME ONE Levofloxacin 500 mg 07/12/18 12:48 07/12/18 12:58 Levaquin PO 07/12/18 12:49 500 mg ONETIME ONE Administration Methylergonovine Maleate 0.2 mg 07/12/18 13:14 Methergine IM 07/12/18 13:15 NOW STA Ondansetron HCl 8 mg 07/12/18 08:39 07/12/18 09:25 Zofran IVPUSH 07/12/18 08:40 8 mg ONETIME ONE Administration Departure - Departure Time of Disposition: 13:22 Disposition: Home, Self-Care 01 Condition: Good Clinical Impression: UTI (urinary tract infection), bleeding - Discharge Information Referrals: PCP,None [Primary Care Provider] - Forms: ED Department Discharge Additional Instructions: Medication as prescribed Return if symptoms persist or worsen if new concerning symptoms develop Call [facility] Dr. Reyna and Dr. Rush are aware of symptoms, they have helped develop your plan and will be back in to see you in the next couple of days call and confirm appointment time at phone number below [facility] [address] [place] [id number] The following information is given to patients seen in the emergency department who are being discharged to home. This information is to outline your options for follow-up care. We provide all patients seen in our emergency department with a follow-up referral. The need for follow-up, as well as the timing and circumstances, are variable depending upon the specifics of your emergency department visit. If you don't have a primary care physician on staff, we will provide you with a referral. We always advise you to contact your personal physician following an emergency department visit to inform them of the circumstance of the visit and for follow-up with them and/or the need for any referrals to a consulting specialist. The emergency department will also refer you to a specialist when appropriate. This referral assures that you have the opportunity for follow-up care with a specialist. All of these measure are taken in an effort to provide you with optimal care, which includes your follow-up. Under all circumstances we always encourage you to contact your private physician who remains a resource for coordinating your care. When calling for follow-up care, please make the office aware that this follow-up is from your recent emergency room visit. If for any reason you are refused follow-up, please contact the [facility] emergency department at and asked to speak to the emergency department charge nurse. - My Orders Last 24 Hours: My Active Orders 07/12/18 09:00 CULTURE URINE [RM] Stat 07/12/18 12:38 HYDROmorphone [Dilaudid] 0.5 mg IVPUSH ONETIME PRN - Assessment/Plan Last 24 Hours: My Active Orders 07/12/18 09:00 CULTURE URINE [RM] Stat 07/12/18 12:38 HYDROmorphone [Dilaudid] 0.5 mg IVPUSH ONETIME PRN
--- NOTE | 2018-07-12 09:33 | US ---
EXAMINATION: Transabdominal obstetric ultrasound HISTORY: Pain COMPARISON: None TECHNIQUE: Grayscale, color Doppler, and spectral Doppler imaging obtained transabdominally. FINDINGS: The uterus is normal in size, contour, and echogenicity. Within the lower uterine segment extending into the endocervical canal there is an 8 x 2.8 cm heterogeneous collection within the endometrium. This does not demonstrate internal color Doppler flow and likely represents a hematoma. Both the left and right ovaries are otherwise normal in size, contour, and echogenicity demonstrating normal color and spectral Doppler flow. No adnexal masses or significant free pelvic fluid. IMPRESSION: 1. Probable hematoma within the lower uterine segment and endocervical canal. There is no internal color Doppler flow making retained products of conception unlikely.
[2018-07-12 10:09] LABS: CHLORIDE,CL 108 mmol/L (98-107); SODIUM,NA 142 mmol/L (136-145)
[2018-07-12] MEDS ORDERED: HYDROmorphone 1 MG/ML Syringe IVPUSH ONE (10:12)
[2018-07-12] MEDS ORDERED: Piperacillin/Tazobactam 3.375 GM in Sodium Chloride 0.9% 50 ML IV SCH (10:15)
[2018-07-12] MEDS ORDERED: HYDROmorphone 2 MG/ML SDV IVPUSH PRN (12:25)
[2018-07-12] MEDS ORDERED: HYDROmorphone 1 MG/ML Syringe IVPUSH PRN (12:38)
[2018-07-12] MEDS ORDERED: Levofloxacin/Dextrose 5%-Water 250 MG in Premix Bag 1 BAG IV ONE (12:48)
[2018-07-12] MEDS ORDERED: Levofloxacin 500 MG Tab PO ONE (12:48)
[2018-07-12] MEDS ORDERED: Methylergonovine 0.2 MG/1 ML Amp IM STA (13:14)
[2018-07-12 13:40] VITALS: BP 131/80
== END 2018-07-12 13:53 | disposition home or self-care (01) ==
LOC: MW.ED 08:36
DX: O86.20 Urinary tract infection following delivery, unspecified (principal); O72.1 Other immediate postpartum hemorrhage; Z88.6 Allergy status to analgesic agent; Z91.018 Allergy to other foods
CPT/HCPCS: 36415; 76856; 80053; 81001; 81025; 83605; 83690; 85025; 86850; 86900; 86901; 87086; 96361; 96372; 96374; 99284; A9270; J1170; J2210; J2405; J7040

== ENCOUNTER 2019-04-15 14:27 | Emergency (ER) | payer SELFPAY ==
--- NOTE | 2019-04-15 15:19 | EDM.PDOC ---
ED [facility] GENERAL MEDICAL PROBLEM - General Chief Complaint: Neurological Problem Stated Complaint: SEIZURE Time Seen by Provider: 04/15/19 15:18 Source of Information: Reports: Patient History Limitations: Reports: No Limitations - History of Present Illness INITIAL COMMENTS - FREE TEXT/NARRATIVE: Is a 21-year-old female with past medical history of seizure disorder. Patient states she takes gabapentin but is poorly compliant with that medication. Patient denies take any other seizure medications. Patient states she had 1 seizure while at work today. Nothing out of the ordinary from her seizure perspective but was forced to come in by her boss at work. Patient denies any symptoms at this time states she does not have any headache, changes in vision, neurologic deficits. Patient feels well and wishes to go home. Not followed up with a neurologist since she has been in [place]. Patient moved here 3 years ago. Patient states lack of resources to go to 1 of the [facility] for neurology evaluation. In addition to that documented in the HPI above, the additional ROS was obtained : Constitutional: Denies fevers or chills Eyes: Denies vision changes ENMT: Denies sore throat CV: Denies chest pain Resp: Denies SOB GI: Denies vomiting or diarrhea : Denies painful urination MSK: Denies recent trauma Skin: Denies new rashes Neuro: Denies new numbness or tingling or weakness Endocrine: Denies unexpected weight loss Heme: Denies bleeding disorders I have reviewed the triage vital signs Const: Well nourished, well developed, appears stated age Eyes: PERRL, no conjunctival injection HENT: NCAT, Neck supple without meningismus CV: RRR, Warm, well-perfused extremities RESP: CTAB, Unlabored respiratory effort GI: soft, non-tender, non-distended, no masses MSK: No gross deformities appreciated Skin: Warm, dry. No rashes Neuro: Alert, software designer II-XII grossly intact. Sensation and motor function of extremities grossly intact. Psych: Appropriate mood and affect Assessment and plan Patient is a 29-year-old female presenting status post seizure. Patient is alert and oriented x3 in the emergency department has had not had any further seizure-like activity. Patient does not demonstrate any evidence of traumatic injury and her labs are within normal limits. Patient does have elevated WBCs without shift and is likely secondary to seizure as the patient is not exhibiting any signs of infection. Patient will be discharged home with seizure medication and urged to follow-up with the outpatient clinic. Patient given strict return precautions all questions addressed and answered. 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: Musculoskeletal History: Reports: None Neurological History: Reports: Seizure Psychiatric History: Reports: Suicidal Ideation Endocrine/Metabolic History: Reports: Obesity/BMI 30+ Hematologic History: Reports: Anemia Immunologic History: Reports: None Oncologic (Cancer) History: Reports: None Dermatologic History: Reports: None - Infectious Disease History Infectious Disease History: Reports: None - Past Surgical History Head Surgeries/Procedures: Reports: None HEENT Surgical History: Reports: Oral Surgery Cardiovascular Surgical History: Reports: None Respiratory Surgical History: Reports: None GI Surgical History: Reports: None Female Surgical History: Reports: None Musculoskeletal Surgical History: Reports: None Dermatological Surgical History: Reports: None Social & Family History - Family History Family Medical History: Noncontributory Oncologic: Reports: Brain, Other (See Below) Other Oncologic Family History: stomach - Tobacco Use Smoking Status *Q: Current Every Day Smoker Years of Tobacco use: 10 Packs/Tins Daily: 0.2 - Caffeine Use Caffeine Use: Reports: None - Recreational Drug Use Recreational Drug Use: Yes Recreational Drug Type: Reports: Marijuana/Hashish Recreational Drug Use Frequency: Not Used In Over 2 Months ED ROS GENERAL - Review of Systems Review Of Systems: See Below ED EXAM, NEURO - Physical Exam Exam: See Below Course - Vital Signs Last Recorded V/S: Last Vital Signs Temp 37.6 C 04/15/19 14:38 Pulse 117 H 04/15/19 14:38 Resp 22 H 04/15/19 14:38 BP 139/95 H 04/15/19 14:38 Pulse Ox 97 04/15/19 14:38 - Orders/Labs/Meds Labs: Laboratory Tests 04/15/19 04/15/19 Range/Units 15:30 15:30 WBC 15.57 H (4.0-11.0) K/uL RBC 5.05 (4.30-5.90) M/uL Hgb 13.1 (12.0-16.0) g/dL Hct 37.9 (36.0-46.0) % MCV 75.0 L (80.0-98.0) fL MCH 25.9 L (27.0-32.0) pg MCHC 34.6 (31.0-37.0) g/dL RDW Std Deviation 47.3 (28.0-62.0) fl RDW Coeff of Rudy 17 H (11.0-15.0) % Plt Count 282 (150-400) K/uL MPV 9.90 (7.40-12.00) fL Neut % (Auto) 79.5 (48.0-80.0) % Lymph % (Auto) 12.7 L (16.0-40.0) % [place] % (Auto) 7.6 (0.0-15.0) % Eos % (Auto) 0.1 (0.0-7.0) % Baso % (Auto) 0.1 (0.0-1.5) % Neut # (Auto) 12.4 H (1.4-5.7) K/uL Lymph # (Auto) 2.0 (0.6-2.4) K/uL [place] # (Auto) 1.2 H (0.0-0.8) K/uL Eos # (Auto) 0.0 (0.0-0.7) K/uL Baso # (Auto) 0.0 (0.0-0.1) K/uL Nucleated RBC % 0.0 /100WBC Nucleated RBCs # 0 K/uL Sodium 140 (136-145) mmol/L Potassium 4.1 (3.5-5.1) mmol/L Chloride 108 H (98-107) mmol/L Carbon Dioxide 22.0 (21.0-32.0) mmol/L BUN 13 (7.0-18.0) mg/dL Creatinine 1.1 H (0.6-1.0) mg/dL Est Cr Clr Drug Dosing 74.04 mL/min Estimated GFR (MDRD) > 60.0 ml/min Glucose 81 (74-106) mg/dL Calcium 8.9 (8.5-10.1) mg/dL Total Bilirubin 0.3 (0.2-1.0) mg/dL AST 13 L (15-37) IU/L ALT 23 (14-63) IU/L Alkaline Phosphatase 61 (46-116) U/L Total Protein 7.3 (6.4-8.2) g/dL Albumin 3.9 (3.4-5.0) g/dL Globulin 3.4 (2.6-4.0) g/dL Albumin/Globulin Ratio 1.1 (0.9-1.6) Meds: Medications Discontinued Medications Generic Name Dose Route Start Last Admin Trade Name Freq PRN Reason Stop Dose Admin Gabapentin 100 mg 04/15/19 16:09 04/15/19 16:21 Neurontin PO 04/15/19 16:10 100 mg ONETIME ONE Administration Departure - Departure Time of Disposition: 16:31 Disposition: Home, Self-Care 01 Clinical Impression: Seizure - Discharge Information Referrals: PCP,Darielobangella [Primary Care Provider] - Forms: ED Department Discharge Additional Instructions: The following information is given to patients seen in the emergency department who are being discharged to home. This information is to outline your options for follow-up care. We provide all patients seen in our emergency department with a follow-up referral. The need for follow-up, as well as the timing and circumstances, are variable depending upon the specifics of your emergency department visit. If you don't have a primary care physician on staff, we will provide you with a referral. We always advise you to contact your personal physician following an emergency department visit to inform them of the circumstance of the visit and for follow-up with them and/or the need for any referrals to a consulting specialist. The emergency department will also refer you to a specialist when appropriate. This referral assures that you have the opportunity for follow-up care with a specialist. All of these measure are taken in an effort to provide you with optimal care, which includes your follow-up. Under all circumstances we always encourage you to contact your private physician who remains a resource for coordinating your care. When calling for follow-up care, please make the office aware that this follow-up is from your recent emergency room visit. If for any reason you are refused follow-up, please contact the [facility] Emergency Department at and asked to speak to the emergency department charge nurse. Sepsis Event Note - Evaluation Sepsis Screening Result: No Definite Risk - Focused Exam Vital Signs: Vital Signs Temp Pulse Resp BP Pulse Ox 04/15/19 14:38 37.6 C 117 H 22 H 139/95 H 97 Date Exam was Performed: 04/15/19 Time Exam was Performed: 16:31
[2019-04-15 16:00] LABS: BLOOD UREA NITROGEN,BUN 13 mg/dL (7.0-18.0); CHLORIDE,CL 108 mmol/L (98-107); GLUCOSE RANDOM 81 mg/dL (74-106); POTASSIUM,K 4.1 mmol/L (3.5-5.1); SODIUM,NA 140 mmol/L (136-145)
[2019-04-15] MEDS ORDERED: Gabapentin 100 MG Cap PO ONE (16:09)
[2019-04-15 16:45] VITALS: BP 124/72; PULSE 71
== END 2019-04-15 16:45 | disposition home or self-care (01) ==
LOC: MW.ED 14:27
DX: G40.909 Epilepsy, unspecified, not intractable, without status epilepticus (principal); F17.210 Nicotine dependence, cigarettes, uncomplicated; Z88.6 Allergy status to analgesic agent; Z91.018 Allergy to other foods
CPT/HCPCS: 36415; 80053; 85025; 99284; A9270

== ENCOUNTER 2019-05-09 12:54 | Emergency (ER) | payer SELFPAY ==
--- NOTE | 2019-05-09 13:12 | EDM.PDOC ---
ED HPI GENERAL MEDICAL PROBLEM - General Chief Complaint: Respiratory Problem Stated Complaint: CHEST PAIN/COUGH Time Seen by Provider: 05/09/19 13:02 Source of Information: Reports: Patient History Limitations: Reports: No Limitations - History of Present Illness INITIAL COMMENTS - FREE TEXT/NARRATIVE: HISTORY AND PHYSICAL: History of present illness: Patient is a 29-year-old female who presents to the ED today with concern of sore throat, nasal congestion, fever, and cough over the past 3 days. Patient states that yesterday she did lose her voice. Patient states she is been taking [id number] throat medications with mild relief of symptoms. Patient states she has a history of seizures but has not had a seizure in over 5 to 10 years. Patient denies any other symptoms or concerns. Patient denies chest pain, shortness of breath. Denies headache, neck stiff ness , change in vision, syncope, or near syncope. Denies nausea, vomiting, abdominal pain, diarrhea, constipation, or dysuria. Has not noted any blood in urine or stool. Patient has been eating and drinking appropriately. Review of systems: As per history of present illness and below otherwise all systems reviewed and negative. Past medical history: As per history of present illness and as reviewed below otherwise noncontributory. Surgical history: As per history of present illness and as reviewed below otherwise noncontributory. Social history: See social history for further information Family history: As per history of present illness and as reviewed below otherwise noncontributory. Physical exam: General: Patient is alert, oriented, and in no acute distress. Patient sitting comfortably on exam table. HEENT: Atraumatic, normocephalic, pupils equal and reactive bilaterally, negative for conjunctival pallor or scleral icterus, mucous membranes moist, TMs normal bilaterally, throat is mildly erythematous without exudate, uvula midline, neck supple, nontender, trachea midline. No drooling or trismus noted. No meningeal signs. No hot potato voice noted but patients voice is hoarse. Lungs: Clear to auscultation, breath sounds equal bilaterally, chest nontender. Heart: S1S2, regular rate and rhythm without overt murmur Abdomen: Soft, nondistended, nontender. Negative for masses or hepatosplenomegaly. Negative for costovertebral tenderness. Pelvis: Stable nontender. Genitourinary: Deferred. Rectal: Deferred. Skin: Intact, warm, dry. No lesions or rashes noted. Extremities: Atraumatic, negative for cords or calf pain. Neurovascular unremarkable. Neuro: Awake, alert, oriented. Cranial nerves II through XII unremarkable. Cerebellum unremarkable. Motor and sensory unremarkable throughout. Exam nonfocal. Notes: Discussed importance for follow-up with a primary care provider. Voices understanding and is agreeable to plan of care. Denies any further questions or concerns at this time. Diagnostics: Influenza, Strep, CXR Therapeutics: None Prescription: Medrol dose pack, Proair inhaler Impression: Tracheobronchitis Flu-like symptoms Laryngitis Plan: 1. You can alternate ibuprofen and Tylenol as directed for fevers and discomfort. Take medication as prescribed. 2. Follow-up with a primary care provider as discussed. Return to the ED as needed and as discussed. Definitive disposition and diagnosis as appropriate pending reevaluation and review of above. chest Pain Score (Numeric/FACES): 6 - Related Data Allergies Allergy/AdvReac Type Severity Reaction Status Date / Time ibuprofen Allergy Abdominal Verified 04/15/19 14:36 Pain raspberry Allergy Rash Verified 04/15/19 14:36 Home Meds: Home Meds . 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: Musculoskeletal History: Reports: None Neurological History: Reports: Seizure Psychiatric History: Reports: Suicidal Ideation Endocrine/Metabolic History: Reports: Obesity/BMI 30+ Hematologic History: Reports: Anemia Immunologic History: Reports: None Oncologic (Cancer) History: Reports: None Dermatologic History: Reports: None - Infectious Disease History Infectious Disease History: Reports: None - Past Surgical History Head Surgeries/Procedures: Reports: None HEENT Surgical History: Reports: Oral Surgery Cardiovascular Surgical History: Reports: None Respiratory Surgical History: Reports: None GI Surgical History: Reports: None Female Surgical History: Reports: None Musculoskeletal Surgical History: Reports: None Dermatological Surgical History: Reports: None Social & Family History - Family History Family Medical History: Noncontributory Oncologic: Reports: Brain, Other (See Below) Other Oncologic Family History: stomach - Caffeine Use Caffeine Use: Reports: None ED ROS GENERAL - Review of Systems Review Of Systems: Comprehensive ROS is negative, except as noted in HPI. ED EXAM, GENERAL - Physical Exam Exam: See Below (see dictation) Course - Vital Signs Last Recorded V/S: Last Vital Signs Temp 100.5 F 05/09/19 13:11 Pulse 84 05/09/19 13:11 Resp 18 05/09/19 13:11 BP 144/72 H 05/09/19 13:11 Pulse Ox 100 05/09/19 13:11 - Orders/Labs/Meds Orders: Active Orders 24 hr Category Date Time Status CULTURE STREP A CONFIRMATION [RM] Stat Lab 05/09/19 13:23 Results HCG QUALITATIVE,URINE [URCHEM] Stat Lab 05/09/19 13:28 Ordered STREP SCRN A RAPID W CULT CONF [RM] Stat Lab 05/09/19 13:23 Results UA RFX HANH AND CULT IF INDIC [URIN] Stat Lab 05/09/19 13:28 Ordered Departure - Departure Time of Disposition: 14:10 Disposition: Home, Self-Care 01 Clinical Impression: Tracheobronchitis, Laryngitis, Flu-like symptoms - Discharge Information Referrals: PCP,None [Primary Care Provider] - Forms: ED Department Discharge Additional Instructions: The following information is given to patients seen in the emergency department who are being discharged to home. This information is to outline your options for follow-up care. We provide all patients seen in our emergency department with a follow-up referral. The need for follow-up, as well as the timing and circumstances, are variable depending upon the specifics of your emergency department visit. If you don't have a primary care physician on staff, we will provide you with a referral. We always advise you to contact your personal physician following an emergency department visit to inform them of the circumstance of the visit and for follow-up with them and/or the need for any referrals to a consulting specialist. The emergency department will also refer you to a specialist when appropriate. This referral assures that you have the opportunity for follow-up care with a specialist. All of these measure are taken in an effort to provide you with optimal care, which includes your follow-up. Under all circumstances we always encourage you to contact your private physician who remains a resource for coordinating your care. When calling for follow-up care, please make the office aware that this follow-up is from your recent emergency room visit. If for any reason you are refused follow-up, please contact the [facility] Emergency Department at and asked to speak to the emergency department charge nurse. [facility] [address] [place] [address] [facility] [address] [place] [id number] 1. You can alternate ibuprofen and Tylenol as directed for fevers and discomfort. Take medication as prescribed. 2. Follow-up with a primary care provider as discussed. Return to the ED as needed and as discussed. Sepsis Event Note - Focused Exam Vital Signs: Vital Signs Temp Pulse Resp BP Pulse Ox 05/09/19 13:11 100.5 F 84 18 144/72 H 100 Date Exam was Performed: 05/09/19 Time Exam was Performed: 14:10 - My Orders Last 24 Hours: My Active Orders 05/09/19 13:23 CULTURE STREP A CONFIRMATION [RM] Stat STREP SCRN A RAPID W CULT CONF [RM] Stat 05/09/19 13:28 HCG QUALITATIVE,URINE [URCHEM] Stat UA RFX HANH AND CULT IF INDIC [URIN] Stat - Assessment/Plan Last 24 Hours: My Active Orders 05/09/19 13:23 CULTURE STREP A CONFIRMATION [RM] Stat STREP SCRN A RAPID W CULT CONF [RM] Stat 05/09/19 13:28 HCG QUALITATIVE,URINE [URCHEM] Stat UA RFX HANH AND CULT IF INDIC [URIN] Stat
[2019-05-09 13:14] VITALS: BP 144/72; PULSE 84
--- NOTE | 2019-05-09 14:08 | CR ---
Chest: 2 views of the chest were obtained. Comparison: No prior chest x-ray. Heart size and mediastinum are normal. Lungs are clear. Minimal scoliosis is noted. Impression: 1. Nothing acute is seen on 2 view chest x-ray. Diagnostic code #1 Study was dictated in [place] Standard Time
== END 2019-05-09 15:02 | disposition home or self-care (01) ==
LOC: MW.ED 12:54
DX: J11.1 Influenza due to unidentified influenza virus with other respiratory manifestations (principal); E66.9 Obesity, unspecified; Z68.28 Body mass index [BMI] 28.0-28.9, adult; Z88.8 Allergy status to other drugs, medicaments and biological substances; Z91.018 Allergy to other foods
CPT/HCPCS: 71046; 71046-26; 81001; 81025; 87081; 87804; 87880-QW; 99283-25

== ENCOUNTER 2019-07-28 08:29 | Emergency (ER) | payer OTHER ==
--- NOTE | 2019-07-28 08:44 | EDM.PDOC ---
ED HPI GENERAL MEDICAL PROBLEM - General Chief Complaint: Neuro Symptoms/Deficits Stated Complaint: EMS Time Seen by Provider: 07/28/19 08:39 Source of Information: Reports: Patient History Limitations: Reports: No Limitations - History of Present Illness INITIAL COMMENTS - FREE TEXT/NARRATIVE: This is a 29-year-old female who presents to the emergency room with a chief complaint of having a seizure while at work. Patient apparently had a seizure about 8:00 40 minutes prior to presentation and the paramedics were called. Upon presentation patient was post ictal per paramedics. Patient will received Versed 2.5 mg prior to presentation. Patient had no signs of trauma. Patient states she has been noncompliant of her medications and has increasing seizures over the last month. Patient last seen in March at this facility for similar episode of seizure at work Onset: Today Duration: Minutes:, Resolved Prior to Arrival Location: Reports: Generalized Severity: Moderate Improves with: Reports: Medication Worsens with: Reports: None Associated Symptoms: Reports: Confusion - Related Data Allergies Allergy/AdvReac Type Severity Reaction Status Date / Time ibuprofen Allergy Abdominal Verified 04/15/19 14:36 Pain raspberry Allergy Rash Verified 04/15/19 14:36 Home Meds: Home Meds Gabapentin [Neurontin] 100 mg PO BEDTIME 07/28/19 [History] levETIRAcetam [Keppra] 500 mg PO BID #60 tab 07/28/19 [Rx] Past Medical History HEENT History: Reports: None Cardiovascular History: Reports: None Respiratory History: Reports: None Gastrointestinal History: Reports: GERD Genitourinary History: Reports: None 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: Musculoskeletal History: Reports: None Neurological History: Reports: Seizure Psychiatric History: Reports: Suicidal Ideation Endocrine/Metabolic History: Reports: Obesity/BMI 30+ Hematologic History: Reports: Anemia Immunologic History: Reports: None Oncologic (Cancer) History: Reports: None Dermatologic History: Reports: None - Infectious Disease History Infectious Disease History: Reports: None - Past Surgical History Head Surgeries/Procedures: Reports: None HEENT Surgical History: Reports: Oral Surgery Cardiovascular Surgical History: Reports: None Respiratory Surgical History: Reports: None GI Surgical History: Reports: None Female Surgical History: Reports: None Endocrine Surgical History: Reports: None Neurological Surgical History: Reports: None Musculoskeletal Surgical History: Reports: None Dermatological Surgical History: Reports: None Social & Family History - Family History Family Medical History: Noncontributory Oncologic: Reports: Brain, Other (See Below) Other Oncologic Family History: stomach - Tobacco Use Smoking Status *Q: Current Every Day Smoker Years of Tobacco use: 10 Packs/Tins Daily: 0.4 - Caffeine Use Caffeine Use: Reports: Coffee - Recreational Drug Use Recreational Drug Use: Yes Recreational Drug Type: Reports: Marijuana/Hashish Recreational Drug Use Frequency: Socially ED ROS GENERAL - Review of Systems Review Of Systems: See Below Constitutional: Reports: No Symptoms HEENT: Reports: No Symptoms Respiratory: Reports: No Symptoms Cardiovascular: Reports: No Symptoms Endocrine: Reports: No Symptoms GI/Abdominal: Reports: No Symptoms : Reports: No Symptoms Musculoskeletal: Reports: No Symptoms Skin: Reports: No Symptoms Neurological: Reports: Confusion, Seizure Psychiatric: Reports: No Symptoms, Other (Patient states she has been under a lot of stress) Hematologic/Lymphatic: Reports: No Symptoms Immunologic: Reports: No Symptoms - Physical Exam Exam: See Below Exam Limited By: No Limitations General Appearance: Alert, WD/WN, No Apparent Distress Eye Exam: Bilateral Eye: Normal Fundi, Normal Inspection Ears: Normal External Exam, Normal Canal, Hearing Grossly Normal Nose: Normal Inspection, Normal Mucosa, No Blood Throat/Mouth: Normal Inspection, Normal Lips, Normal Teeth, Normal Gums, Normal Oropharynx, Normal Voice, No Airway Compromise Head Exam: Atraumatic, Normocephalic Neck: Normal Inspection, Supple, Non-Tender, Full Range of Motion Respiratory/Chest: No Respiratory Distress, Lungs Clear, Normal Breath Sounds, No Accessory Muscle Use, Chest Non-Tender Cardiovascular: Normal Peripheral Pulses, Regular Rate, Rhythm, No Edema, No Gallop, No JVD, No Murmur GI/Abdominal: Normal Bowel Sounds, Soft, Non-Tender (Female) Exam: Deferred Rectal (Female) Exam: Deferred Neuro Exam (Abbreviated): Alert, Oriented, CN II-XII Intact, Normal Cognition, Slow to Respond Back Exam: Normal Inspection, Full Range of Motion Extremities: Normal Inspection, Normal Range of Motion, No Pedal Edema, Normal Capillary Refill Psychiatric: Normal Affect, Normal Mood Skin Exam: Warm, Dry, Intact, Normal Color, No Rash EKG INTERPRETATION EKG Date: 07/28/19 Time: 08:45 Rhythm: NSR [place]: Normal QRS: Normal ST-T: Normal QT: Normal EKG Interpretation Comments: non acute Course - Vital Signs Text/Narrative:: This 29-year-old female presents to the emergency room with a chief complaint of having seizure at work. Was giving medication by the paramedics. Patient has been observed for approximately hours without any significant seizure. Patient's magnesium has been corrected initially 1.7. Patient has been given 500 of Keppra discharged home follow-up with clinic physicians. Patient given Keppra for discharge Last Recorded V/S: Last Vital Signs Temp 97.8 F 07/28/19 08:33 Pulse 61 07/28/19 10:17 Resp 18 07/28/19 10:17 BP 121/80 07/28/19 10:17 Pulse Ox 100 07/28/19 10:17 - Orders/Labs/Meds Orders: Active Orders 24 hr Category Date Time Status EKG 12 Lead [EKG Documentation Completion] [RC] STAT Care 07/28/19 08:41 Active Magnesium Sulfate/Water [Magnesium Sulfate in Water Med 07/28/19 09:27 Active Premix] 2 gm Premix Bag 1 bag IV ONETIME levETIRAcetam [Keppra] 500 mg Med 07/28/19 09:00 Active Dextrose 5% in Water 100 ml IV Q12H Medication Orders Levetiracetam 500 mg/ Dextrose (/Water) 105 mls @ 420 mls/hr IV Q12H [facility] Last Admin: 07/28/19 09:01 Dose: 420 mls/hr Magnesium Sulfate 2 gm/ Premix 50 mls @ 50 mls/hr IV ONETIME ONE Stop: 07/28/19 10:26 Last Admin: 07/28/19 09:40 Dose: 50 mls/hr Labs: Laboratory Tests 07/28/19 07/28/19 07/28/19 Range/Units 08:30 08:30 08:30 WBC 13.70 H (4.0-11.0) K/uL RBC 4.74 (4.30-5.90) M/uL Hgb 12.3 (12.0-16.0) g/dL Hct 36.4 (36.0-46.0) % MCV 76.8 L (80.0-98.0) fL MCH 25.9 L (27.0-32.0) pg MCHC 33.8 (31.0-37.0) g/dL RDW Std Deviation 49.4 (28.0-62.0) fl RDW Coeff of Rudy 17 H (11.0-15.0) % Plt Count 294 (150-400) K/uL MPV 9.80 (7.40-12.00) fL Neut % (Auto) 77.1 (48.0-80.0) % Lymph % (Auto) 14.7 L (16.0-40.0) % Coles % (Auto) 7.8 (0.0-15.0) % Eos % (Auto) 0.3 (0.0-7.0) % Baso % (Auto) 0.1 (0.0-1.5) % Neut # (Auto) 10.6 H (1.4-5.7) K/uL Lymph # (Auto) 2.0 (0.6-2.4) K/uL Coles # (Auto) 1.1 H (0.0-0.8) K/uL Eos # (Auto) 0.0 (0.0-0.7) K/uL Baso # (Auto) 0.0 (0.0-0.1) K/uL Nucleated RBC % 0.0 /100WBC Nucleated RBCs # 0 K/uL Sodium 140 (136-145) mmol/L Potassium 3.5 (3.5-5.1) mmol/L Chloride 106 (98-107) mmol/L Carbon Dioxide 19.5 L (21.0-32.0) mmol/L BUN 11 (7.0-18.0) mg/dL Creatinine 1.2 H (0.6-1.0) mg/dL Est Cr Clr Drug Dosing 70.41 mL/min Estimated GFR (MDRD) 53.5 ml/min Glucose 94 (74-106) mg/dL Calcium 8.4 L (8.5-10.1) mg/dL Magnesium 1.7 L (1.8-2.4) mg/dL Total Bilirubin 0.2 (0.2-1.0) mg/dL AST 13 L (15-37) IU/L ALT 18 (14-63) IU/L Alkaline Phosphatase 64 (46-116) U/L Total Protein 7.0 (6.4-8.2) g/dL Albumin 3.7 (3.4-5.0) g/dL Globulin 3.3 (2.6-4.0) g/dL Albumin/Globulin Ratio 1.1 (0.9-1.6) Urine HCG, Qual (NEGATIVE) 07/28/19 Range/Units 08:56 WBC (4.0-11.0) K/uL RBC (4.30-5.90) M/uL Hgb (12.0-16.0) g/dL Hct (36.0-46.0) % MCV (80.0-98.0) fL MCH (27.0-32.0) pg MCHC (31.0-37.0) g/dL RDW Std Deviation (28.0-62.0) fl RDW Coeff of Rudy (11.0-15.0) % Plt Count (150-400) K/uL MPV (7.40-12.00) fL Neut % (Auto) (48.0-80.0) % Lymph % (Auto) (16.0-40.0) % Coles % (Auto) (0.0-15.0) % Eos % (Auto) (0.0-7.0) % Baso % (Auto) (0.0-1.5) % Neut # (Auto) (1.4-5.7) K/uL Lymph # (Auto) (0.6-2.4) K/uL Coles # (Auto) (0.0-0.8) K/uL Eos # (Auto) (0.0-0.7) K/uL Baso # (Auto) (0.0-0.1) K/uL Nucleated RBC % /100WBC Nucleated RBCs # K/uL Sodium (136-145) mmol/L Potassium (3.5-5.1) mmol/L Chloride (98-107) mmol/L Carbon Dioxide (21.0-32.0) mmol/L BUN (7.0-18.0) mg/dL Creatinine (0.6-1.0) mg/dL Est Cr Clr Drug Dosing mL/min Estimated GFR (MDRD) ml/min Glucose (74-106) mg/dL Calcium (8.5-10.1) mg/dL Magnesium (1.8-2.4) mg/dL Total Bilirubin (0.2-1.0) mg/dL AST (15-37) IU/L ALT (14-63) IU/L Alkaline Phosphatase (46-116) U/L Total Protein (6.4-8.2) g/dL Albumin (3.4-5.0) g/dL Globulin (2.6-4.0) g/dL Albumin/Globulin Ratio (0.9-1.6) Urine HCG, Qual NEGATIVE (NEGATIVE) Meds: Medications Generic Name Dose Route Start Last Admin Trade Name Freq PRN Reason Stop Dose Admin Levetiracetam 500 mg/ Dextrose 105 mls @ 420 mls/hr 07/28/19 09:00 07/28/19 09:01 /Water IV 420 mls/hr Q12H RITA Administration Magnesium Sulfate 2 gm/ Premix 50 mls @ 50 mls/hr 07/28/19 09:27 07/28/19 09: 40 IV 07/28/19 10:26 50 mls/hr ONETIME ONE Administration Discontinued Medications Generic Name Dose Route Start Last Admin Trade Name Freq PRN Reason Stop Dose Admin Sodium Chloride 1,000 mls @ 1,000 mls/hr 07/28/19 08:48 07/28/19 09:40 Normal Saline IV 07/28/19 09:47 100 mls/hr .Bolus ONE Infusion Departure - Departure Time of Disposition: 10:17 Disposition: Home, Self-Care 01 Condition: Good Clinical Impression: Seizure disorder - Discharge Information Prescriptions: levETIRAcetam [Keppra] 500 mg PO BID #60 tab Instructions: Epilepsy, [id number] Referrals: PCP,Unknown [Ordering Only Provider] - Forms: ED Department Discharge Additional Instructions: You need to eat foods with magnesium. Patient to take magnesium [id number] Patient is to take Keppra as prescribed Follow-up with clinic physician Try to obtain a appointment with neurologist Sepsis Event Note - Evaluation Sepsis Screening Result: No Definite Risk - Focused Exam Vital Signs: Vital Signs Temp Pulse Resp BP Pulse Ox 07/28/19 10:17 61 18 121/80 100 07/28/19 09:42 67 18 116/80 100 07/28/19 08:33 97.8 F 82 16 124/78 100 Date Exam was Performed: 07/28/19 Time Exam was Performed: 10:24 - My Orders Last 24 Hours: My Active Orders 07/28/19 08:41 EKG 12 Lead [EKG Documentation Completion] [RC] STAT 07/28/19 09:00 levETIRAcetam [Keppra] 500 mg Dextrose 5% in Water 100 ml IV Q12H 07/28/19 09:27 Magnesium Sulfate/Water [Magnesium Sulfate in Water Premix] 2 gm Premix Bag 1 bag IV ONETIME - Assessment/Plan Last 24 Hours: My Active Orders 07/28/19 08:41 EKG 12 Lead [EKG Documentation Completion] [RC] STAT 07/28/19 09:00 levETIRAcetam [Keppra] 500 mg Dextrose 5% in Water 100 ml IV Q12H 07/28/19 09:27 Magnesium Sulfate/Water [Magnesium Sulfate in Water Premix] 2 gm Premix Bag 1 bag IV ONETIME
[2019-07-28] MEDS ORDERED: Sodium Chloride 0.9% 1,000 ML IV ONE (08:48)
[2019-07-28 09:11] LABS: CARBON DIOXIDE,CO2 19.5 mmol/L (21.0-32.0); POTASSIUM,K 3.5 mmol/L (3.5-5.1)
[2019-07-28] MEDS ORDERED: Magnesium Sulfate/Water 2 GM in Premix Bag 1 BAG IV ONE (09:27)
--- NOTE | 2019-07-28 09:55 | CR ---
Chest: AP view of the chest was obtained. Comparison: Prior chest x-ray of 05/09/19. Heart size and mediastinum are within normal limits. Lungs are clear with no acute parenchymal change. Bony structures are grossly intact. Impression: 1. Nothing acute is appreciated on frontal chest x-ray. Diagnostic code #1 This report was dictated in MDT
[2019-07-28 10:18] VITALS: PULSE 61
[2019-07-28 14:49] VITALS: BP 112/73
== END 2019-07-28 10:55 | disposition home or self-care (01) ==
LOC: MW.ED 08:29
DX: G40.909 Epilepsy, unspecified, not intractable, without status epilepticus (principal); E66.9 Obesity, unspecified; F17.210 Nicotine dependence, cigarettes, uncomplicated; Z68.25 Body mass index [BMI] 25.0-25.9, adult; Z88.6 Allergy status to analgesic agent; Z91.018 Allergy to other foods; Z79.899 Other long term (current) drug therapy
CPT/HCPCS: 71045; 80053; 81025; 83735; 85025; 93005; 96361; 96374; 99285; J1953; J3475; J7030; J7060; 99283

== ENCOUNTER 2019-10-05 15:26 | Emergency (ER) | payer OTHER ==
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
[2019-10-05] MEDS ORDERED: Diphtheria,Pertussis(Acell),Tetanus Vaccine 0.5 ML Syringe IM ONE (16:10)
--- NOTE | 2019-10-05 17:02 | CT ---
Head CT Technique: Multiple axial sections through the brain were obtained. Intravenous contrast was not utilized. Comparison: No prior intracranial imaging is available. Findings: Ventricles along with basal cisterns and sulci over the convexities are within normal limits for the patient's age. Minimal soft tissue swelling is seen within the posterior left parietal scalp. No evidence of intracranial hemorrhage. No midline shift or mass-effect is seen. Bone window settings were reviewed. No acute calvarial abnormality is seen. Visualized paranasal sinuses and mastoid sinuses are clear. Impression: 1. Slight soft tissue swelling within the posterior left scalp. 2. No acute intracranial abnormality is appreciated. Diagnostic code #1 This report was dictated in MDT
--- NOTE | 2019-10-05 17:06 | CT ---
CT cervical spine Technique: Multiple axial sections were obtained from above C1 inferiorly to the bottom of T4. Reconstructed sagittal and coronal images were reviewed. Findings: Vertebral body heights and disc spaces are maintained. Vertebral bodies and posterior arches are intact. No fracture is seen. No bony central or bony neural foraminal stenosis is appreciated. No subluxation is seen. Impression: 1. No abnormality is appreciated on CT study of the cervical spine. Diagnostic code #1 This report was dictated in MDT
--- NOTE | 2019-10-05 17:11 | CR ---
Right hand: 4 views of the right hand were obtained. Comparison: No previous hand study is available. Joint spaces are preserved. No fracture, dislocation or other bony abnormality is appreciated. Impression: 1. No abnormality is identified on right hand exam. Diagnostic code #1 This report was dictated in MDT
[2019-10-05 17:38] VITALS: BP 118/73; PULSE 81
== END 2019-10-05 17:35 | disposition home or self-care (01) ==
LOC: MW.ED 15:26
DX: S00.03XA Contusion of scalp, initial encounter (principal); S40.811A Abrasion of right upper arm, initial encounter; S69.91XA Unspecified injury of right wrist, hand and finger(s), initial encounter; R56.9 Unspecified convulsions; E66.9 Obesity, unspecified; Z68.26 Body mass index [BMI] 26.0-26.9, adult; Z23 Encounter for immunization; Z88.6 Allergy status to analgesic agent; Z91.018 Allergy to other foods; Z79.899 Other long term (current) drug therapy; Y04.0XXA Assault by unarmed brawl or fight, initial encounter
CPT/HCPCS: 70450; 70450-26; 72125; 72125-26; 73130-26-RT; 73130-RT; 90471; 90715; 99284; 99284-25

== ENCOUNTER 2024-07-26 15:38 | Emergency (ER) | payer MEDICAID, OTHER ==
[2024-07-26 15:51] VITALS: BP 138/94; PULSE 89
[2024-07-26] MEDS: Orphenadrine 60 MG/2 ML Inj IM ONE (16:56)
[2024-07-26] MEDS: Ketorolac 30 MG/ML SDV IM ONE (16:56)
== END 2024-07-26 17:28 | disposition home or self-care (01) ==
LOC: MW.ED 15:38
DX: M54.32 Sciatica, left side (principal); Z75.3 Unavailability and inaccessibility of health-care facilities; E66.9 Obesity, unspecified; Z68.30 Body mass index [BMI] 30.0-30.9, adult; Z79.899 Other long term (current) drug therapy; Z91.048 Other nonmedicinal substance allergy status; Z88.8 Allergy status to other drugs, medicaments and biological substances
CPT/HCPCS: 96372; 99283; J1100; J1885; J2360